=== PATIENT | male | born 1970 | race Caucasian/White ===

== ENCOUNTER 2020-01-25 12:05 | Emergency (ER) | payer BC, SELFPAY ==
[2020-01-25 12:12] VITALS: BP 149/98; PULSE 77; RESP 18; TEMP 36.7; O2SAT 98; BMI 27.8
[2020-01-25 12:18] VITALS: BP 140/80; PULSE 76; RESP 16; TEMP 37.2; O2SAT 100; BMI 27.8
--- NOTE | 2020-01-25 12:23 | HMH.EDUTC ---
[facility] [place] Disposition Clinical Impression: Abdominal cramping Disposition: Home, Self-Care Condition on Discharge: Good Instructions: How to Avoid Gas, Avoiding Gas-producing Foods, Intestinal Gas (Alternative Therapy) Additional Instructions: Make sure to follow up with your Family Doctor for further treatment and evaluation Return if needed Straight to ER if any life threatening symptoms Take medication as prescribed Prescriptions: Dicyclomine HCl [Bentyl 10mg capsule] 10 mg PO TID PRN #15 cap PRN Reason: Cramping Transmission Status: Received by [facility] Referrals: PCP,No [Primary Care Provider] - As needed Forms: Work/School Release Time of Disposition: 12:33 Medical Decision Making - Timmy Inquiry Pt receiving controlled substance: No Timmy was queried for this patient: No Vital Signs: 01/25/20 12:12 01/25/20 12:18 01/25/20 12:43 Temperature 98.1 F 98.9 F 98.9 F Temperature Source Oral Oral Pulse Rate 76 Pulse Rate [Radial] 77 76 Respiratory Rate 18 16 16 Blood Pressure 140/80 Blood Pressure [Right Arm] 149/98 H 140/80 Blood Pressure Mean [Right Arm] 115 100 Blood Pressure Source [Right Arm] Automatic Cuff Automatic Cuff Blood Pressure Position [Right Arm] Sitting Sitting 02 Sat by Pulse Oximetry 98 100 Oxygen Delivery Method Room Air Room Air Orders (Tests/Meds): ED MEDICATIONS Discontinued Medications Generic Name Dose Route Start Last Admin Trade Name Freq PRN Reason Stop Dose Admin Dicyclomine HCl 10 mg 01/25/20 12:30 01/25/20 12:32 Dicyclomine 20 Mg/2ml Vial IM 01/25/20 12:31 10 mg ONCE ONE Administration Medical Decision Narrative: Discussed and recommended KUB or acute abdomen Xray and patient declined After Bentyl patient states that he is feeling much better and no longer having the cramping like feeling and ready to go home again recommended xray and patient declined [facility] [place] HPI - General Stated complaint: gas abd pain Time Seen by Provider: 01/25/20 12:23 Mode of Arrival: Ambulatory Source of Information: Patient Limitations: No Limitations Description of Symptoms (Recalled from Triage Doc. by RN): PATIENT C/O GAS PAIN SINCE LAST NIGHT AFTER EATING SOME RAW BROCCOLI. HAS A HISTORY OF SIMILAR ISSUES HEENT Symptoms (Recalled from RN notes): No Resp Symptoms (Recalled from RN notes): No Skin Symptoms (Recalled from RN notes): No MS Symptoms (Recalled from RN notes): No Functional Status (Recalled from RN notes): WNL - History of Present Illness Provider Complaint: Patient states that sometimes after eating raw vegetables States that he eat some brocoli last night and has been having cramping like gas pain ever since States that he did this before after eating raw vegetables and come in and they give him a shot of something and it helped Denies pain in chest and reports feels like gas bubbles in his abdomen that are moving reports had large BM earlier today denies diarrhea - Related Data Home Medications Medication Instructions Recorded Confirmed omeprazole 20 mg capsule,delayed 20 mg PO ONCE 08/25/17 01/25/20 release Previous Rx's Medication Instructions Recorded Dicyclomine HCl [Bentyl 10mg 10 mg PO TID PRN #15 cap 01/25/20 capsule] Allergies Allergy/AdvReac Type Severity Reaction Status Date / Time No Known Allergies Allergy Verified 11/26/18 11:26 - Worker's Comp Is this a Worker's Comp case?: No [facility] History - Hepatitis A Screen Drug use history?: No High risk sexual behaviors?: No History of sexually transmitted infection?: No Currently employed?: No Childcare worker?: No Do you have indoor plumbing?: Yes Do you have electricity?: Yes Attestation statement:: This patient has been screened for Hepatitis A risk factors. I have reviewed the patient's past medical history: Yes Medical History: Reports:: Gastroesophageal Reflux Disease(GERD) Laterality Cases: Bilateral: Other A
[2020-01-25 12:43] VITALS: BP 140/80; PULSE 76; RESP 16; TEMP 37.2; O2SAT 100
== END 2020-01-25 12:45 | disposition home or self-care (01) ==
LOC: ER 12:13 → UTC 12:13
PROVIDERS: Emergency Provider Emergency Medicine
DX: R10.30 Lower abdominal pain, unspecified (principal); K21.9 Gastro-esophageal reflux disease without esophagitis
CPT/HCPCS: 96372; 99201

== ENCOUNTER 2020-04-17 21:02 | Emergency (ER) | payer BC, SELFPAY ==
[2020-04-17 21:03] VITALS: BP 128/90; PULSE 85; RESP 16; TEMP 37; O2SAT 99; BMI 27.8
--- NOTE | 2020-04-17 22:05 | HMH.EDNVD ---
ED Disposition Clinical Impression: Abdominal pain Qualifiers: Abdominal location: generalized Qualified Code(s): R10.84 - Generalized abdominal pain Disposition: Home, Self-Care Condition on Discharge: Good Instructions: DI for Acute Abdominal Pain Additional Instructions: see pcp for follow up Referrals: Rancho Prabhakar MD [Primary Care Provider] - - Critical Care Critical Care Time: No Attestation: On 04/17/20, the high probability of a clinically significant, sudden or life threatening deterioration of the following system(s) required my full and direct attention, intervention and personal management. The time I documented below is in addition to time spent performing reported procedures but includes the following listed in this critical care notation. Medical Decision Making - Medical Records Medical records reviewed: Yes: I reviewed the patient's medical records. - Timmy Inquiry Pt receiving controlled substance: No Vital Signs: 04/17/20 21:03 Temperature 98.6 F Temperature Source Oral Pulse Rate [Left Radial] 85 Respiratory Rate 16 Blood Pressure [Right Arm] 128/90 Blood Pressure Mean [Right Arm] 102 Blood Pressure Source [Right Arm] Automatic Cuff Blood Pressure Position [Right Arm] Sitting 02 Sat by Pulse Oximetry 99 Oxygen Delivery Method Room Air - Lab Data Lab results reviewed: Yes: I reviewed the patient's lab results. Orders (Tests/Meds): ED MEDICATIONS Discontinued Medications Generic Name Dose Route Start Last Admin Trade Name Nany PRN Reason Stop Dose Admin Dicyclomine HCl 10 mg 04/17/20 21:20 04/17/20 21:26 Dicyclomine 20 Mg/2ml Vial IM 04/17/20 21:21 10 mg ONCE ONE Administration Diphenhydramine HCl 25 mg 04/17/20 21:18 04/17/20 21:23 Diphenhydramine 50mg/Ml Vial IM 04/17/20 21:19 Not Given ONCE ONE Nausea/Vomiting/Diarrhea HPI - General Chief complaint: Abdominal Pain Stated complaint: stomach cramps Time Seen by Provider: 04/17/20 21:45 Mode of Arrival: Ambulatory Source of Information: Patient, Medical Record Limitations: No Limitations Description of Symptoms (Recalled from ER Triage Doc. by RN): pt stated he was eating raw carrots tonight when his stomach began to cramp and bloat. pt stated eating raw vegetables always has this effect on his stomach. pt denies any n/v/d or localized abd. pain and stated he didnt want any blood work at this time but just wanted an IM bentyl injection - History of Present Illness HPI Narrative: bloated abd after eating raw vegs with abd MD complaint: nausea, abdominal pain Onset (ago): hour(s) Associated Abdominal Pain: Yes Severity: moderate Associated symptoms: denies other symptoms - Related Data Home Medications Medication Instructions Recorded Confirmed omeprazole 20 mg capsule,delayed 20 mg PO ONCE 08/25/17 01/25/20 release Previous Rx's Medication Instructions Recorded Dicyclomine HCl [Bentyl 10mg 10 mg PO TID PRN #15 cap 01/25/20 capsule] Allergies Allergy/AdvReac Type Severity Reaction Status Date / Time No Known Allergies Allergy Verified 11/26/18 11:26 [facility] History - Hepatitis A Screen Drug use history?: No High risk sexual behaviors?: No History of sexually transmitted infection?: No Currently employed?: No Childcare worker?: No Do you have indoor plumbing?: Yes Do you have electricity?: Yes Attestation statement:: This patient has been screened for Hepatitis A risk factors. I have reviewed the patient's past medical history: Yes Medical History: Reports:: Gastroesophageal Reflux Disease(GERD) Laterality Cases: Bilateral: Other Amputation: No Fractures: No Comment: left thumb injury and colon surgery as an - Social History Smoking Status: Never smoker Alcohol Intake: never Substance Use Type: denies use Occupational Status: other Housing: house Household Members: family Family Hx:: Cancer ROS Obtained: Yes All sy
[2020-04-17 22:12] VITALS: BP 135/93; PULSE 81; RESP 16; TEMP 36.9; O2SAT 100
== END 2020-04-17 22:14 | disposition home or self-care (01) ==
PROVIDERS: Emergency Provider Emergency Medicine; PCP Emergency Medicine
DX: R10.84 Generalized abdominal pain (principal); K21.9 Gastro-esophageal reflux disease without esophagitis
CPT/HCPCS: 96372; 99281

== ENCOUNTER 2020-10-09 11:42 | Emergency (ER) | payer BC, SELFPAY ==
[2020-10-09 11:45] VITALS: BP 142/72; PULSE 72; RESP 18; TEMP 36.9; O2SAT 98; BMI 27.8
[2020-10-09 12:13] LABS: UTC Strep Screen (Rapid) Negative (Negative)
--- NOTE | 2020-10-09 12:36 | HMH.EDUTC ---
[facility] [place] Disposition Clinical Impression: URI (upper respiratory infection) Qualifiers: URI type: unspecified URI Qualified Code(s): J06.9 - Acute upper respiratory infection, unspecified Disposition: Home, Self-Care Condition on Discharge: Good Instructions: Sore Throat, Sinusitis, DI for Sinusitis, Azithromycin Additional Instructions: *Nasal saline and bulb syringe or nose isha to remove nasal drainage and help with nasal congestion. Hard to eat, drink, or sleep with nasal congestion so important to keep nose cleaned out. *Monitor Temp, Over the counter Motrin or Tylenol as directed/as needed Tylenol every 4 hours and Motrin every 6 hours (as long as your family doctor has told you that you can take it) for fever or pain. and straight to ER if unable to lower temp less than 101.0 after medication given *Warm salt water gargles may help to soothe the throat *Throat Lozenges *Warm fluids like tea with honey may help to soothe the throat *Sleep elevated *Humidifier/Vaporizer *Flonase 2 sprays in each nostril daily but be aware that it may take 2-3 days before you notice improvement Follow up IMMEDIATELY for new or worsening symptoms or no Noticeable improvement over the next 48-72 hours. 911 for difficulty breathing or swallowing Prescriptions: methylPREDNISolone [Medrol 4mg tab] 4 mg PO DIRECTED #21 tab Transmission Status: Pending to [facility] Azithromycin [Z-Akin 250mg Tab] 250 mg PO DIRECTED #6 tab Transmission Status: Pending to [facility] Referrals: Rancho Prabhakar MD [Primary Care Provider] - As needed Time of Disposition: 12:41 Medical Decision Making - Timmy Inquiry Pt receiving controlled substance: No Timmy was queried for this patient: No Vital Signs: 10/09/20 11:45 Temperature 98.5 F Temperature Source Oral Pulse Rate [Right Brachial] 72 Respiratory Rate 18 Blood Pressure [Right Arm] 142/72 H Blood Pressure Mean [Right Arm] 95 Blood Pressure Source [Right Arm] Automatic Cuff Blood Pressure Position [Right Arm] Sitting 02 Sat by Pulse Oximetry 98 Oxygen Delivery Method Room Air - Lab Data Lab results reviewed: Yes: I reviewed the patient's lab results. Lab Results 07/11/21 11:57: Strep Scn Rapid Clinic Negative Orders (Tests/Meds): ORDERS Category Date Time Status Strep Screen Confirmation Stat Micro 10/09/20 11:57 Received [facility] [place] HPI - General Stated complaint: sore throat Time Seen by Provider: 10/09/20 12:36 Mode of Arrival: Ambulatory Source of Information: Patient Limitations: No Limitations Description of Symptoms (Recalled from Triage Doc. by RN): PATIENT C/O SORE THROAT, WHITE PATCHES IN THROAT, AND SINUS DRAINAGE X 2 DAYS HEENT Symptoms (Recalled from RN notes): Yes Resp Symptoms (Recalled from RN notes): No Skin Symptoms (Recalled from RN notes): No MS Symptoms (Recalled from RN notes): No Functional Status (Recalled from RN notes): WNL - History of Present Illness Provider Complaint: Patient states that he has been having some sinus pressure and drainage in the back of his throat and having sore throat States that today he noticed he had some white patchy like areas on his right tonsil and was worried that he may have strep throat - Related Data Home Medications Medication Instructions Recorded Confirmed omeprazole 20 mg capsule,delayed 20 mg PO DAILYP PRN 08/25/17 10/09/20 release Previous Rx's Medication Instructions Recorded Azithromycin [Z-Akin 250mg Tab] 250 mg PO DIRECTED #6 tab 10/09/20 methylPREDNISolone [Medrol 4mg 4 mg PO DIRECTED #21 tab 10/09/20 tab] Allergies Allergy/AdvReac Type Severity Reaction Status Date / Time No Known Allergies Allergy Verified 11/26/18 11:26 - Worker's Comp Is this a Worker's Comp case?: No [facility] History - Hepatitis A Screen Drug use history?: No High risk sexual behaviors?: No History of sexually transmitted infection?: N
[2020-10-09 12:38] VITALS: BP 142/72; PULSE 72; RESP 18; TEMP 36.9; O2SAT 98
== END 2020-10-09 12:40 | disposition home or self-care (01) ==
PROVIDERS: Emergency Provider Nurse Practitioner; PCP Emergency Medicine
DX: J06.9 Acute upper respiratory infection, unspecified (principal); K21.9 Gastro-esophageal reflux disease without esophagitis
CPT/HCPCS: 87880; 99202; G0463

== ENCOUNTER 2021-04-16 09:08 | Emergency (ER) | payer BC, SELFPAY ==
[2021-04-16 09:41] VITALS: BP 149/79; PULSE 89; RESP 19; TEMP 37.3; O2SAT 96; BMI 27.8
--- NOTE | 2021-04-16 09:41 | HMH.EDUTC ---
[facility] [place] Clinical Impression: Influenza A Sinusitis Qualifiers: Sinusitis location: unspecified location Chronicity: acute Recurrence: non-recurrent Qualified Code(s): J01.90 - Acute sinusitis, unspecified Disposition: Home, Self-Care Condition on Discharge: Good Instructions: DI for Viral Syndrome Additional Instructions: Drink plenty of fluids. Take tylenol or ibuprofen for pain or fever. Take the medications as directed. Follow up with your regular doctor. GO TO THE ER FOR ANY WORSENING SYMPTOMS Quarantine until you know the results of your covid-19 test. If it is positive, the health department should call you and give you further instructions about your length of Quarantine and other things. Notify your school or workplace of your results and follow their instructions regarding return to work/school. Prescriptions: Promethazine/Dextromethorphan [Promethazine-Dm Syrup] 5 ml PO Q6HP PRN #240 ml PRN Reason: Cough [facility] methylPREDNISolone [Medrol] 4 mg PO DIRECTED 6 Days #21 packet Transmission Status: [facility] Cefdinir [Omnicef 300mg Capsule] 300 mg PO BID #20 cap Transmission Status: Received by [facility] Oseltamivir Phosphate [Tamiflu 75mg Capsule] 75 mg PO BID #10 cap Transmission Status: [facility] to [facility] Referrals: Rancho Prabhakar MD [Primary Care Provider] - Time of Disposition: 10:30 Medical Decision Making - Medical Records Medical records reviewed: No: I reviewed the patient's medical records. - Timmy Inquiry Pt receiving controlled substance: No Vital Signs: 04/16/21 09:41 Temperature 99.1 F Temperature Source Oral Pulse Rate [Left] 89 Respiratory Rate 19 Blood Pressure [Right Arm] 149/79 H Blood Pressure Mean [Right Arm] 102 02 Sat by Pulse Oximetry 96 - Lab Data Lab results reviewed: Yes: I reviewed the patient's lab results. Lab Results 04/16/21 09:44: Influenza Type A Ag Positive A, Influenza Type B Ag Negative Orders (Tests/Meds): ORDERS Category Date Time Status Covid-19 Nasal PCR ([facility]) Routine Lab 04/16/21 09:43 Received [facility] [place]PI - General Stated complaint: covid test/symptoms Time Seen by Provider: 04/16/21 09:41 - History of Present Illness Provider Complaint: He states that since yesterday he has had sinus congestion, chills, a dry cough, and body aches. He was treated for a sinus infection last week with azithromycin and it got better at that time. - Related Data Home Medications Medication Instructions Recorded Confirmed omeprazole 20 mg capsule,delayed 20 mg PO DAILYP PRN 08/25/17 04/15/21 release Previous Rx's Medication Instructions Recorded cetirizine 10 mg tablet 10 mg PO DAILY #30 tab 04/15/21 Cefdinir [Omnicef 300mg Capsule] 300 mg PO BID #20 cap 04/16/21 Oseltamivir Phosphate [Tamiflu 75 mg PO BID #10 cap 04/16/21 75mg Capsule] Promethazine/Dextromethorphan 5 ml PO Q6HP PRN #240 ml 04/16/21 [Promethazine-Dm Syrup] methylPREDNISolone [Medrol] 4 mg PO DIRECTED 6 Days #21 04/16/21 packet Allergies Allergy/AdvReac Type Severity Reaction Status Date / Time No Known Allergies Allergy Verified 04/15/21 17:29 [facility] History - Hepatitis A Screen Attestation statement:: This patient has been screened for Hepatitis A risk factors. I have reviewed the patient's past medical history: Yes Medical History: Reports:: Gastroesophageal Reflux Disease(GERD) Laterality Cases: Bilateral: Other Amputation: No Fractures: No Comment: left thumb injury and colon surgery as an infant - Social History Smoking Status: Never smoker Alcohol Intake: never Substance Use Type: denies use Occupational Status: other Housing: house Household Members: family Family Hx:: Cancer ROS Obtained: Yes All systems reviewed & no additional complaints - Constitutional Constitutional:
[2021-04-16 10:26] LABS: UTC Influenza B Antigen Negative (Negative)
[2021-04-16 10:38] LABS: UTC Influenza A Antigen Positive (Negative)
[2021-04-16 10:49] VITALS: BP 149/79; PULSE 89; RESP 19; TEMP 37.3
== END 2021-04-16 10:51 | disposition home or self-care (01) ==
PROVIDERS: Emergency Provider Nurse Practitioner Family; PCP Emergency Medicine
DX: J10.1 Influenza due to other identified influenza virus with other respiratory manifestations (principal); U07.1 COVID-19; J01.90 Acute sinusitis, unspecified
CPT/HCPCS: 87804; 99202; C9803; G0463; U0003; U0005

== ENCOUNTER 2021-10-06 18:17 | Emergency (ER) | payer BC, SELFPAY ==
[2021-10-06 18:40] VITALS: BP 144/83; PULSE 72; RESP 19; TEMP 37.2; O2SAT 97; BMI 26.4
--- NOTE | 2021-10-06 19:01 | HMH.EDUTC ---
[facility] [place] Clinical Impression: Allergic rhinitis Qualifiers: Allergic rhinitis trigger: unspecified Allergic rhinitis seasonality: unspecified Qualified Code(s): J30.9 - Allergic rhinitis, unspecified Disposition: Home, Self-Care Condition on Discharge: Good Instructions: Allergic Rhinitis, DI for Allergic Rhinitis, Methylprednisolone Additional Instructions: *Monitor Temp, Over the counter Motrin or Tylenol as directed/as needed Tylenol every 4 hours and Motrin every 6 hours (as long as your family doctor has told you that you can take it) for fever or pain. and straight to ER if unable to lower temp less than 101.0 after medication given Start oral steriods tomorrow Use nasal spray Follow up IMMEDIATELY for new or worsening symptoms or no Noticeable improvement over the next 48-72 hours. 911 for difficulty breathing or swallowing Prescriptions: Fluticasone Propionate [Flonase 50mcg nasal spray 16gm] 1 spr NS DAILY #1 each Transmission Status: Pending to [facility] methylPREDNISolone [Medrol 4mg tab] 4 mg PO DIRECTED #21 tab Transmission Status: Pending to [facility] Referrals: Rancho Prabhakar MD [Primary Care Provider] - As needed Time of Disposition: 19:20 Medical Decision Making - Timmy Inquiry Pt receiving controlled substance: No Timmy was queried for this patient: No Vital Signs: 10/06/21 18:40 10/06/21 19:08 Temperature 98.9 F 98.9 F Temperature Source Temporal Artery Scan Pulse Rate 72 Pulse Rate [Right Brachial] 72 Respiratory Rate 19 19 Blood Pressure 144/83 H Blood Pressure [Right Arm] 144/83 H Blood Pressure Mean [Right Arm] 103 Blood Pressure Source [Right Arm] Automatic Cuff Blood Pressure Position [Right Arm] Sitting 02 Sat by Pulse Oximetry 97 Oxygen Delivery Method Room Air Orders (Tests/Meds): ED MEDICATIONS Discontinued Medications Generic Name Dose Route Start Last Admin Trade Name Freq PRN Reason Stop Dose Admin Methylprednisolone Sodium Succinate 125 mg 10/06/21 19:01 10/06/21 19:05 Methylprednisolone Sod Succ 125mg Vial IM 10/06/21 19:02 125 mg ONCE ONE Administration [facility] [place] - General Stated complaint: runny nose and congestion Time Seen by Provider: 10/06/21 19:01 Mode of Arrival: Ambulatory Source of Information: Patient Limitations: No Limitations Description of Symptoms (Recalled from Triage Doc. by RN): PATIENT C/O CONGESTION AND ALLERGIES X 3 MONTHS HEENT Symptoms (Recalled from RN notes): Yes Resp Symptoms (Recalled from RN notes): No Skin Symptoms (Recalled from RN notes): No MS Symptoms (Recalled from RN notes): No Functional Status (Recalled from RN notes): WNL - History of Present Illness Provider Complaint: Patient states that he has really bad allergies on and off for about 3 mths States that recently he eat a bar and there was alot of people in there smoking and it caused an allergy flare States that he has tried to get it cleared up with his allergy medication but it hasnt helped so he came in to get a shot of steriods to see if that would help - Related Data Previous Rx's Medication Instructions Recorded Fluticasone Propionate [Flonase 1 spr NS DAILY #1 each 10/06/21 50mcg nasal spray 16gm] methylPREDNISolone [Medrol 4mg 4 mg PO DIRECTED #21 tab 10/06/21 tab] Allergies Allergy/AdvReac Type Severity Reaction Status Date / Time No Known Allergies Allergy Verified 04/15/21 17:29 - Worker's Comp Is this a Worker's Comp case?: No [facility] History - Hepatitis A Screen Attestation statement:: This patient has been screened for Hepatitis A risk factors. I have reviewed the patient's past medical history: Yes Medical History: Reports:: Gastroesophageal Reflux Disease(GERD) Laterality Cases: Bilateral: Other Amputation: No Fractures: No Comment: left thumb injury and colon surgery as an - Social History Smoking Status: Never smoker Alcohol Int
[2021-10-06 19:08] VITALS: BP 144/83; PULSE 72; RESP 19; TEMP 37.2; O2SAT 97
== END 2021-10-06 19:24 | disposition home or self-care (01) ==
PROVIDERS: Emergency Provider Nurse Practitioner; PCP Emergency Medicine
DX: J30.9 Allergic rhinitis, unspecified (principal); K21.9 Gastro-esophageal reflux disease without esophagitis; Z79.51 Long term (current) use of inhaled steroids; Z79.52 Long term (current) use of systemic steroids
CPT/HCPCS: 96372; 99213; G0463

== ENCOUNTER 2021-12-02 08:02 | Emergency (ER) | payer BC, SELFPAY ==
[2021-12-02 08:05] VITALS: BP 132/81; PULSE 61; RESP 20; TEMP 36.7; O2SAT 97; BMI 26.7
--- NOTE | 2021-12-02 08:35 | EXP.UTC ---
Discharge Plan Disposition Patient Disposition: Home, Self-Care Condition: Good Prescriptions Prescriptions: New amoxicillin 875 mg tablet 875 mg PO BID Qty: 20 0RF methylprednisolone [Medrol (Akin)] 4 mg tablets,dose pack 4 mg PO DIRECTED 6 Days Qty: 6 0RF Rx Instructions: 4 mg orally ;Medrol dose taper akin No Action omeprazole 20 mg Capsule,Delayed Release(Dr/Ec) 20 mg PO DAILY Referrals Follow up/Referrals: Rancho Prabhakar MD [Primary Care Provider] - See instructions Activity Restrictions/Add. Instructions Additional Instructions/Restrictions: Take medication as prescribed. Use Flonase daily. Increase fluids. Take Tylenol/Motrin as needed for pain/fever. Follow up with PCP if no improvement or symptoms worsen. Clinical Impressions Clinical Impression: Sinusitis, Otitis media Instructions Patient Instructions: Sinusitis, Middle Ear Infection, DI for Sinusitis Discharge ED Provider: Katheryn Boyd [facility] [place] [place] HPI General Stated complaint: Ear pain Mode of Arrival: Ambulatory Source of Information: Patient Limitations: No Limitations Time Seen by Provider: 12/02/21 08:20 Description of Symptoms (Recalled from Triage Doc. by RN): PATIENT C/O LEFT EAR PAIN AND SINUS CONGESTION SINCE YESTERDAY HEENT Symptoms (Recalled from RN notes): Yes Resp Symptoms (Recalled from RN notes): No Skin Symptoms (Recalled from RN notes): No MS Symptoms (Recalled from RN notes): No Functional Status (Recalled from RN notes): WNL History of Present Illness Provider Complaint: Pt complains of Sinus issues for the last 3 weeks and now has left ear pain. Pt states that he has tried taking fexafenadine but this has not helped his symptoms. 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 Related Data Home Medications Medication Instructions Recorded Confirmed omeprazole 20 mg capsule,delayed 20 mg PO DAILY GERD 12/02/21 12/02/21 release Previous Rx's Medication Instructions Recorded amoxicillin 875 mg tablet 875 mg PO BID #20 tabs 12/02/21 methylprednisolone 4 mg tablets in 4 mg PO DIRECTED 6 days #6 tabs 12/02/21 a dose pack (Medrol (Akin)) Allergies Allergy/AdvReac Type Severity Reaction Status Date / Time No Known Allergies Allergy Verified 04/15/21 17:29 Worker's Comp Is this a Worker's Comp case?: No PFSH PFSH Medical History (Updated 12/02/21 @ 08:44 by Katheryn Boyd APRN) History of gastroesophageal reflux (GERD) Social History (Updated 12/02/21 @ 08:14 by Antonia Santiago RN) Smoking Status: Never smoker alcohol intake: never substance use type: denies use current occupational status: other Travel in the last 8 weeks: None household members: family housing: house ROS Obtained: Yes All systems reviewed & no additional complaints except as documented and Yes Systems reviewed as appropriate & no additional complaints except as documented ENT Ears, Nose, Mouth, and Throat: Reports otalgia, Reports sinus pain and Reports sinus pressure Cardiovascular Cardiovascular: Reports system reviewed and no additional complaints, except as documented Respiratory Respiratory: Reports system reviewed and no additional complaints, except as documented Gastrointestinal Gastrointestingal: Reports system reviewed and no additional complaints, except as documented Physical Exam General General appearance: alert and in no apparent distress Expanded ENT Exam TM/Canal exam: Left TM: erythema and Bilateral TM: bulging (Fluid behind TMs) Nose exam: Present sinus tenderness Nasal speculum exam: Bilateral: purulent discharge Respiratory Respiratory exam: Present normal lung sounds bilaterally Cardiovascular Cardiovascular exam: Present regular rate and normal rhythm Neurological Exam Neurological exam: Present alert, oriented X3 and normal gait Medical Decision Making Timmy Inquiry Pt receiving controlled substance: No [place]
[2021-12-02 08:38] VITALS: BP 132/81; PULSE 61; RESP 20; TEMP 36.7; O2SAT 97
== END 2021-12-02 08:47 | disposition home or self-care (01) ==
PROVIDERS: Emergency Provider Nurse Practitioner Family; PCP Emergency Medicine
DX: J01.90 Acute sinusitis, unspecified (principal); H66.93 Otitis media, unspecified, bilateral
CPT/HCPCS: 99282

== ENCOUNTER 2021-12-17 08:19 | Emergency (ER) | payer BC, SELFPAY ==
--- NOTE | 2021-12-17 08:26 | EXP.UTC ---
Discharge Plan Disposition Patient Disposition: Home, Self-Care Condition: Good Prescriptions Prescriptions: New sulfamethoxazole-trimethoprim [Bactrim DS] 800-160 mg tablet 1 tab PO BID Qty: 20 0RF No Action omeprazole 20 mg Capsule,Delayed Release(Dr/Ec) 20 mg PO DAILY Referrals Follow up/Referrals: Rancho Prabhakar MD [Primary Care Provider] - See instructions Clinical Impressions Clinical Impression: Insect bite Instructions Patient Instructions: DI for Skin Abscess Discharge ED Provider: Brayden Whyte [facility] HPI General Chief complaint: Skin/Abscess/Foreign Body Stated complaint: Possible spider bite on LT side abdomin Mode of Arrival: Ambulatory Source of Information: Patient Limitations: No Limitations Time Seen by Provider: 12/17/21 08:47 Description of Symptoms (Recalled from Triage Doc. by RN): spider bite to left back HEENT Symptoms (Recalled from RN notes): No Resp Symptoms (Recalled from RN notes): No Skin Symptoms (Recalled from RN notes): No GI/ Symptoms (Recalled from RN notes): No MS Symptoms (Recalled from RN notes): No Card Symptoms (Recalled from RN notes): No Other (Recalled from RN notes): No History of Present Illness Provider Complaint: 51 yr old male presents for a insect bite to left back area since . 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 pt states area has improved slightly. Onset (ago): day(s) Location: back Radiation: non-radiation Treatments prior to arrival: none Related Data Home Medications Medication Instructions Recorded Confirmed omeprazole 20 mg capsule,delayed 20 mg PO DAILY GERD 12/02/21 12/17/21 release Previous Rx's Medication Instructions Recorded sulfamethoxazole 800 1 tab PO BID #20 tabs 12/17/21 mg-trimethoprim 160 mg tablet (Bactrim DS) Allergies Allergy/AdvReac Type Severity Reaction Status Date / Time No Known Allergies Allergy Verified 04/15/21 17:[address] [facility] Medical History , [employer]) History of gastroesophageal reflux (GERD) Social History , [employer]) Smoking Status: Never smoker alcohol intake: never substance use type: denies use current occupational status: other Travel in the last 8 weeks: None household members: family housing: house ROS Obtained: Yes All systems reviewed & no additional complaints except as documented Constitutional Constitutional: Reports system reviewed and no additional complaints, except as documented Eyes Eyes: Reports system reviewed and no additional complaints, except as documented ENT Ears, Nose, Mouth, and Throat: Reports system reviewed and no additional complaints, except as documented Cardiovascular Cardiovascular: Reports system reviewed and no additional complaints, except as documented Respiratory Respiratory: Reports system reviewed and no additional complaints, except as documented Gastrointestinal Gastrointestingal: Reports system reviewed and no additional complaints, except as documented Genitourinary Male Genitourinary: Reports system reviewed and no additional complaints, except as documented Musculoskeletal Musculoskeletal: Reports system reviewed and no additional complaints, except as documented Integumentary/Breasts Skin/Breast: Reports system reviewed and no additional complaints, except as documented and Reports other (insect bite) Neurologic Neurologic: Reports system reviewed and no additional complaints, except as documented Endocrine Endocrine: Reports system reviewed and no additional complaints, except as documented Hematologic/Lymphatic Henatologic/Lymphatic: Reports system reviewed and no additional complaints, except as documented Allergic/Immunologic Allergic/Immunologic: Reports system reviewed and no additional complaints, except as
[2021-12-17 08:28] VITALS: BP 141/93; PULSE 69; RESP 19; TEMP 36.7; O2SAT 98; BMI 27.4
[2021-12-17 08:59] VITALS: BP 141/93; PULSE 69; RESP 19; TEMP 36.7
== END 2021-12-17 09:02 | disposition home or self-care (01) ==
PROVIDERS: Emergency Provider Nurse Practitioner Family; PCP Emergency Medicine
DX: S30.861A Insect bite (nonvenomous) of abdominal wall, initial encounter (principal)
CPT/HCPCS: 99212; G0463

== ENCOUNTER 2022-01-22 10:44 | Emergency (ER) | payer BC, SELFPAY ==
[2022-01-22 10:44] VITALS: BP 131/65; PULSE 85; RESP 19; TEMP 37.1; O2SAT 98; BMI 27.3
--- NOTE | 2022-01-22 11:36 | EXP.UTC ---
Discharge Plan Disposition Patient Disposition: Home, Self-Care Condition: Good Prescriptions Prescriptions: New [id number]-[id number]-NC [Bromfed DM] 2-30-10 mg/5 mL Syrup 10 ml PO Q4H PRN (Reason: Cough) Qty: 240 0RF azithromycin [Zithromax Z-Akin] 250 mg tablet See Rx Instructions .ROUTE .COMPLEX 5 Days Qty: 6 0RF Rx Instructions: For 250 mg dose pack: take 500 mg today (day 1), then 250 mg for 4 days (days 2-5) methylprednisolone [Medrol (Akin)] 4 mg tablets,dose pack See Rx Instructions .Route .COMPLEX 6 Days Qty: 21 0RF Rx Instructions: taper pack; No Action sulfamethoxazole-trimethoprim [Bactrim DS] 800-160 mg tablet 1 tab PO BID Qty: 20 0RF sulfamethoxazole-trimethoprim [Bactrim DS] 800-160 mg tablet 1 tab PO BID Qty: 20 0RF omeprazole 20 mg Capsule,Delayed Release(Dr/Ec) 20 mg PO DAILY Referrals Follow up/Referrals: Rancho Prabhakar MD [Primary Care Provider] - See instructions Activity Restrictions/Add. Instructions Additional Instructions/Restrictions: *Monitor Temp, Over the counter Motrin or Tylenol as directed/as needed Tylenol every 4 hours and Motrin every 6 hours (as long as your family doctor has told you that you can take it) for fever or pain. and straight to ER if unable to lower temp less than 101.0 after medication given *Warm salt water gargles may help to soothe the throat *Throat Lozenges? *Warm fluids like tea with honey may help to soothe the throat? *Sleep elevated *Humidifier/Vaporizer *Bromfed may cause drowsiness. Know how it effects you (your child) before driving, caring for small child, or sending your child to school. Not other antihistamines/allergy medications while taking bromfed Your throat swab was sent for culture. Those results are typically sent to your primary care. Be sure to follow up in 2-3 days with your family doctor/primary care physician if no improvement so they can review those result and treat if necessary. If you don?t have a primary care doctor, I recommend you get one but in the mean time, you will have to return to a walk in clinic Follow up IMMEDIATELY for new or worsening symptoms or no Noticeable improvement over the next 48-72 hours. 911 for difficulty breathing or swallowing You were tested for today for COVID19 your test result should be back in the next 24-48 hours, you may check your results on the [facility] My Health Portal Clinical Impressions Clinical Impression: Sinusitis Stand Alone Forms Stand Alone Forms: Work/School Release Instructions Patient Instructions: DI for Sinusitis, Sinusitis, Coronavirus Disease 2019 Discharge ED Provider: Sharmaine Freed [facility] HPI General Stated complaint: Covid+ 01/11, retest Mode of Arrival: Ambulatory Source of Information: Patient Limitations: No Limitations Time Seen by Provider: 01/22/22 11:36 Description of Symptoms (Recalled from Triage Doc. by RN): wants a positive covid test congestion, runny nose, fatigue, body aches HEENT Symptoms (Recalled from RN notes): Yes Resp Symptoms (Recalled from RN notes): No Skin Symptoms (Recalled from RN notes): No MS Symptoms (Recalled from RN notes): No Functional Status (Recalled from RN notes): n/a History of Present Illness Provider Complaint: Patient states that he has been having sinus pain and pressure and drainage along with cough, fatigue and body aches States that at times he is coughing up some mucous States that he took a home COVID test last night and thinks he may have seen a faint line but not sure so he came in today to get checked Related Data Home Medications Medication Instructions Recorded Confirmed omeprazole 20 mg capsule,delayed 20 mg PO DAILY GERD 12/02/21 12/17/21 release Previous Rx's Medication Instructions Recorded sulfamethoxazole 800 1 tab PO BID #20 tabs 12/17/21 mg-trimethoprim 160 mg tablet (Bactrim DS) sulfamethoxazole 800 1 tab PO BID #20 tab
[2022-01-22 11:56] VITALS: BP 131/65; PULSE 85; RESP 19; TEMP 37.1; O2SAT 98
== END 2022-01-22 11:57 | disposition home or self-care (01) ==
PROVIDERS: Emergency Provider Nurse Practitioner; PCP Emergency Medicine
DX: J32.9 Chronic sinusitis, unspecified (principal); Z86.16 Personal history of COVID-19
CPT/HCPCS: 99212; C9803; G0463; U0003; U0005

== ENCOUNTER → 2022-11-05 10:51 | Outpatient (CLI) | payer BC, SELFPAY ==
--- NOTE | 2022-11-05 10:52 | US_ITS ---
FINAL REPORT CLINICAL HISTORY: abdominal pain FINDINGS: Sonographic images of the right upper quadrant were obtained. The pancreas is partially obscured.The liver has an unremarkable appearance.The gallbladder appears normal without evidence of gallstones.There is no evidence of biliary ductal dilatation.The common duct measures 4mm. Limited images of the right kidney are unremarkable. IMPRESSION: Unremarkable right upper quadrant ultrasound. Reviewed, Interpreted and Dictated by Paul Payne III, MD Transcribed by Queenie Buenrostro Authenticated and [facility]
== END ==
PROVIDERS: PCP Emergency Medicine; Visit Provider Emergency Medicine
DX: R10.9 Unspecified abdominal pain (principal)
CPT/HCPCS: 76705

== ENCOUNTER 2022-11-05 16:39 | Emergency (ER) | payer BC, SELFPAY ==
[2022-11-05 16:40] VITALS: BP 140/72; PULSE 75; RESP 16; TEMP 36.7; O2SAT 98; BMI 19.0
[2022-11-05 17:05] LABS: UTC Strep Screen (Rapid) Negative (Negative)
--- NOTE | 2022-11-05 17:08 | EXP.UTC ---
Discharge Plan Disposition Patient Disposition: Home, Self-Care Condition: Good Prescriptions Prescriptions: New azithromycin [Zithromax Z-Akin] 250 mg tablet See Rx Instructions .ROUTE .COMPLEX 5 Days Qty: 6 0RF Rx Instructions: For 250 mg dose pack: take 500 mg today (day 1), then 250 mg for 4 days (days 2-5) methylprednisolone [Medrol (Akin)] 4 mg tablets,dose pack See Rx Instructions .Route .COMPLEX 6 Days Qty: 21 0RF Rx Instructions: taper pack; No Action pantoprazole [Protonix] 40 mg tablet,delayed release (DR/EC) 40 mg PO BID Qty: 180 3RF Referrals Follow up/Referrals: Rancho Prabhakar MD [Primary Care Provider] - See instructions Activity Restrictions/Add. Instructions Additional Instructions/Restrictions: *Monitor Temp, Over the counter Motrin or Tylenol as directed/as needed Tylenol every 4 hours and Motrin every 6 hours (as long as your family doctor has told you that you can take it) for fever or pain. and straight to ER if unable to lower temp less than 101.0 after medication given *Warm salt water gargles may help to soothe the throat *Throat Lozenges? *Warm fluids like tea with honey may help to soothe the throat? *Sleep elevated *Humidifier/Vaporizer Your throat swab was sent for culture. Those results are typically sent to your primary care. Be sure to follow up in 2-3 days with your family doctor/primary care physician if no improvement so they can review those result and treat if necessary. If you don?t have a primary care doctor, I recommend you get one but in the mean time, you will have to return to a walk in clinic Follow up IMMEDIATELY for new or worsening symptoms or no Noticeable improvement over the next 48-72 hours. 911 for difficulty breathing or swallowing Clinical Impressions Clinical Impression: Pharyngitis Qualifiers: Pharyngitis/tonsillitis etiology: unspecified etiology Qualified Code(s): J02.9 - Acute pharyngitis, unspecified Instructions Patient Instructions: Sore Throat, Sinusitis, DI for Sinusitis Discharge ED Provider: Sharmaine Freed [facility] General Stated complaint: sore throat Mode of Arrival: Ambulatory Source of Information: Patient Limitations: No Limitations Time Seen by Provider: 11/05/22 17:09 Description of Symptoms (Recalled from Triage Doc. by RN): Patient reports possible sinus infection and sore throat. HEENT Symptoms (Recalled from RN notes): Yes Resp Symptoms (Recalled from RN notes): No Skin Symptoms (Recalled from RN notes): No MS Symptoms (Recalled from RN notes): No Functional Status (Recalled from RN notes): wnl History of Present Illness Provider Complaint: Patient states that he was not sure if he had a sinus infection or strep throat States that he has been having sinus pressure and drainage and sore throat States that he noticed some areas on the back of his throat that looked like blisters States today he wasnt feeling any better so he came in to get checked Related Data Previous Rx's Medication Instructions Recorded pantoprazole 40 mg tablet,delayed 40 mg PO BID #180 tabs 08/02/22 release (Protonix) azithromycin 250 mg tablet See Rx Instructions PO .COMPLEX 5 11/05/22 (Zithromax Z-Akin) days #6 tabs methylprednisolone 4 mg tablets in See Rx Instructions .Route 11/05/22 a dose pack (Medrol (Akin)) .COMPLEX 6 days #21 tabs Allergies Allergy/AdvReac Type Severity Reaction Status Date / Time No Known Allergies Allergy Verified 10/29/22 14:32 Worker's Comp Is this a Worker's Comp case?: No [facility] Disclaimer: The information contained in this section may have been updated after the patient was seen, as this information can be updated by other users. Medical History (Updated 11/05/22 @ 17:13 by Sharmaine Freed APRN) Abdominal cramping Abdominal pain Allergic rhinitis Amputation of thumb Anxiety History of gastroesophageal reflux (GERD) Influenza A In
[2022-11-05 17:14] VITALS: BP 140/72; PULSE 75; RESP 16; TEMP 36.7; O2SAT 98
== END 2022-11-05 17:18 | disposition home or self-care (01) ==
PROVIDERS: Emergency Provider Nurse Practitioner; PCP Emergency Medicine
DX: J02.9 Acute pharyngitis, unspecified (principal); J30.9 Allergic rhinitis, unspecified; K21.9 Gastro-esophageal reflux disease without esophagitis; F41.9 Anxiety disorder, unspecified
CPT/HCPCS: 87880; 99212; 99214; G0463

== ENCOUNTER 2022-11-12 18:14 | Emergency (ER) | payer BC, SELFPAY ==
[2022-11-12 18:20] VITALS: BP 150/88; PULSE 66; RESP 22; TEMP 36.8; O2SAT 97; BMI 25.2
--- NOTE | 2022-11-12 18:40 | EXP.UTC ---
Discharge Plan Disposition Patient Disposition: Home, Self-Care Condition: Good Prescriptions Prescriptions: New nystatin 100,000 unit/mL suspension 6 ml buccal QID 10 Days Qty: 240 0RF Rx Instructions: administer 1/2 of dose in each side of the mouth swish and retain in mouth as long as possible and spit Referrals Follow up/Referrals: Rancho Prabhakar MD [Primary Care Provider] - See instructions Activity Restrictions/Add. Instructions Additional Instructions/Restrictions: Use Nystatin as directed Follow up with your Family Doctor if no improvement or any worsening of symptoms Return if needed Straight to ER if any life threatening symptoms Clinical Impressions Clinical Impression: Candidiasis of mouth Instructions Patient Instructions: Thrush-Adult, DI for Thrush, Nystatin Discharge ED Provider: Sharmaine Freed [facility] General Stated complaint: tongue has coating Mode of Arrival: Ambulatory Source of Information: Patient Limitations: No Limitations Time Seen by Provider: 11/12/22 18:40 Description of Symptoms (Recalled from Triage Doc. by RN): PATIENT C/O IRRITATION TO TONGUE, POSSIBLY THRUSH HEENT Symptoms (Recalled from RN notes): Yes Resp Symptoms (Recalled from RN notes): No Skin Symptoms (Recalled from RN notes): No MS Symptoms (Recalled from RN notes): No Functional Status (Recalled from RN notes): WNL History of Present Illness Provider Complaint: Patient states that he was recently started on antibiotics and sometimes when he takes it he will get thrush States that he is starting to have that sandpaper like feeling on his tongue and noticed he was starting to have a white film on his tongue and wanted to get it checked before it got really bad Related Data Previous Rx's Medication Instructions Recorded nystatin 100,000 unit/mL oral 6 ml buccal QID 10 days #240 mL 11/12/22 suspension Allergies Allergy/AdvReac Type Severity Reaction Status Date / Time No Known Allergies Allergy Verified 10/29/22 14:32 Worker's Comp Is this a Worker's Comp case?: No [facility] Disclaimer: The information contained in this section may have been updated after the patient was seen, as this information can be updated by other users. Medical History (Updated 11/12/22 @ 18:54 by Sharmaine Freed APRN) Abdominal cramping Abdominal pain Allergic rhinitis Amputation of thumb Anxiety History of gastroesophageal reflux (GERD) Influenza A Insect bite Otitis media Sinusitis URI (upper respiratory infection) Surgical History (Updated 02/26/22 @ 12:37 by Leleee rAndt DO) History of esophagogastroduodenoscopy (EGD) History of hernia repair Family History (Updated 02/26/22 @ 11:58 by Jodie Maza MA) Mother Cancer Social History (Updated 02/26/22 @ 12:38 by Leelee Arndt DO) Smoking Status: Former smoker alcohol intake: never substance use type: denies use current occupational status: employed and other Travel in the last 8 weeks: None household members: family housing: house marital status: number of children: 2 ROS Obtained: Yes All systems reviewed & no additional complaints except as documented and Yes Systems reviewed as appropriate & no additional complaints except as documented Constitutional Constitutional: Reports system reviewed and no additional complaints, except as documented and Reports as per HPI ENT Ears, Nose, Mouth, and Throat: Reports system reviewed and no additional complaints, except as documented, Reports as per HPI and Reports other (white patchy like areas on tongue) Cardiovascular Cardiovascular: Reports system reviewed and no additional complaints, except as documented and Reports as per HPI Respiratory Respiratory: Reports system reviewed and no additional complaints, except as documented and Reports as per HPI Gastrointestinal Gastrointestingal: Reports system reviewed and no additional complaints, except as
[2022-11-12 18:50] VITALS: BP 150/88; PULSE 66; RESP 22; TEMP 36.8; O2SAT 97
== END 2022-11-12 18:55 | disposition home or self-care (01) ==
PROVIDERS: Emergency Provider Nurse Practitioner; PCP Emergency Medicine
DX: B37.0 Candidal stomatitis (principal); F41.9 Anxiety disorder, unspecified; K21.9 Gastro-esophageal reflux disease without esophagitis; Z87.891 Personal history of nicotine dependence
CPT/HCPCS: 99212; 99214; G0463

== ENCOUNTER 2023-02-20 10:08 | Day surgery (SDC) | payer BC, SELFPAY ==
[2023-02-20 10:24] VITALS: BP 146/67; PULSE 91; RESP 18; TEMP 36.7; O2SAT 98; BMI 25.0
--- NOTE | 2023-02-20 10:58 | P.PNANES_ITS ---
[facility] Disclaimer: The information contained in this section may have been updated after the patient was seen, as this information can be updated by other users. Medical History Abdominal cramping Abdominal pain Allergic rhinitis Amputation of thumb Anxiety History of gastroesophageal reflux (GERD) Influenza A Insect bite Otitis media Sinusitis URI (upper respiratory infection) Surgical History History of esophagogastroduodenoscopy (EGD) History of hernia repair L groin Family History Mother Cancer Ovarian Social History (Updated 02/20/23 @ 10:24 by Nikita Mendoza RN) Smoking Status: Former smoker alcohol intake: never substance use type: denies use current occupational status: employed and other Travel in the last 8 weeks: Inside the [place] household members: family housing: house marital status: number of children: 2 [facility] Anesthesia Checklist Patient Identification Patient Identification: Arm Band Structural Data Admitted From: Home Planned Operative Procedure/s: colonoscopy Consent for Planned Operative Procedure(s) Verified: Yes Verified Documents: Surgical Consent and History and Physical NPO Status Verified Time NPO: 00:00 Additional verifications Anesthesia Reactions: No Airway Assessment Mallampati Score:: Class II C-Spine Mobility Assessed: Yes Dentition: Good Dentition Neurological Assessment Level of Consciousness: Awake and Alert Anesthesia Plan Anesthesia Risk discussed: Yes Anesthesia Plan: Verified ASA Class: II Anesthesia Type: MAC
[2023-02-20 10:59] VITALS: O2SAT 99
[2023-02-20 11:25] VITALS: BP 101/71; PULSE 84; RESP 14; TEMP 36.2; O2SAT 93
--- NOTE | 2023-02-20 11:27 | HMH.SCOPE ---
Procedure: Date: 02/20/23 Patient Date of :: 1970 Procedure Performed:: Colonoscopy Indications:: The patient is a 52 year old who presents for surveillance colonoscopy for a history of colon polyps. There is family history of colon cancer in first degree relative (mother) Performing Provider:: Mateus Llanos MD Referring Provider:: Rancho Prabhakar MD Sedation:: See RN records Procedure:: After placing the patient in the left lateral decubitus position, the colonoscopy was gently inserted into the rectum and under direct visualization advanced to the cecum which was identified by transillumination in the right lower quadrant, identification of the ileocecal valve, appendiceal orifice, and cecal strap. Color, texture, mucosa, and anatomy of the colon were carefully examined with the scope. Findings:: Anal canal: normal Rectum:Hemorrhoids. Three sessile polyps measuring 3-6 mm in size. Removed with cold forceps and cold snaer polypectomy. There was immediate post polypectomy bleeding after snare removal of the 6 mm polyp. Hemostasis was controlled by deployment of two resolution endoclips. Sigmoid colon: normal without polyps or inflammatory changes Descending colon: normal without polyps or inflammatory changes Splenic flexure: normal Transverse colon: normal without polyps or inflammatory changes Hepatic flexure: normal Ascending colon: normal without polyps or inflammatory changes Cecum: Sessile polyp 5 mm in size. Removed with cold snare polypectomy Terminal ileum: not visualized Impression: Polyp of cecum Polyps of rectum Recommendations:: Await pathology results Repeat colonoscopy most likely in 3-5 years (3 years if all polyps are adenomatous) Complications:: Post polypectomy bleeding. Hemostasis controlled wiht deployment of endoclips Estimated blood obtained (mL): 1 Colonoscopy Component Colonoscopy Component Was a colonoscopy performed during today's procedure?: Yes Recommended follow up colonoscopy of at least 10 years?: Yes
[2023-02-20 11:35] VITALS: BP 119/74; PULSE 75; RESP 16; O2SAT 96
[2023-02-20 11:45] VITALS: BP 132/75; PULSE 82; RESP 18; O2SAT 98
[2023-02-20 11:55] VITALS: BP 127/80; PULSE 81; RESP 18; O2SAT 98
== END 2023-02-20 12:05 | disposition home or self-care (01) ==
PROVIDERS: PCP Emergency Medicine; Visit Provider Internal Medicine
PROC: 0DJD8ZZ Inspection of Lower Intestinal Tract, Via Natural or Artificial Opening Endoscopic (ICD-10-PCS; CPT 45378; principal; 2023-02-20 11:30)
DX: Z12.11 Encounter for screening for malignant neoplasm of colon (principal); Z86.010 Personal history of colon polyps; Z80.0 Family history of malignant neoplasm of digestive organs; K64.8 Other hemorrhoids; D12.0 Benign neoplasm of cecum
CPT/HCPCS: 45385

== ENCOUNTER 2023-03-30 09:53 | Emergency (ER) | payer BC, SELFPAY ==
[2023-03-30 10:00] VITALS: BP 146/88; PULSE 93; RESP 20; TEMP 37.2; O2SAT 98; BMI 26.4
--- NOTE | 2023-03-30 10:01 | EXP.UTC ---
Discharge Plan Disposition Patient Disposition: Home, Self-Care Condition: Good Prescriptions Prescriptions: New oseltamivir [Tamiflu] 75 mg capsule 75 mg PO BID Qty: 10 0RF methylprednisolone 4 mg Tablets,Dose Pack 4 mg PO DIRECTED 6 Days Qty: 21 0RF Rx Instructions: Take 1 pack as directed for 6 days benzonatate [benzonatate] 100 mg capsule 100 mg PO TIDP PRN (Reason: Cough) Qty: 30 0RF No Action pantoprazole 40 mg tablet,delayed release (DR/EC) 40 mg PO DAILY Referrals Follow up/Referrals: Nikita Espana DO [Primary Care Provider] - See instructions Activity Restrictions/Add. Instructions Additional Instructions/Restrictions: Drink plenty of fluids. Take tylenol or ibuprofen for pain or fever. Take one of these regularly for the next few days. Take the medications as directed. Follow up with your regular doctor. GO TO THE ER FOR ANY WORSENING SYMPTOMS Clinical Impressions Clinical Impression: Influenza A, Exposure to 2019 novel coronavirus Instructions Patient Instructions: DI for Influenza -- Adult, Oseltamivir Discharge ED Provider: Waldo Byrd [facility] General Stated complaint: covid exposure fever body aches congestion cough Time Seen by Provider: 03/30/23 10:01 History of Present Illness Provider Complaint: He states that for the past 2 days he has had fever/chills/body aches and sinus congestion. He has been exposed to covid-19. Related Data Home Medications Medication Instructions Recorded Confirmed pantoprazole 40 mg tablet,delayed 40 mg PO DAILY 03/30/23 03/30/23 release Previous Rx's Medication Instructions Recorded benzonatate 100 mg capsule 100 mg PO TIDP PRN Cough #30 caps 03/30/23 methylprednisolone 4 mg tablets in 4 mg PO DIRECTED 6 days #21 tabs 03/30/23 a dose pack oseltamivir 75 mg capsule (Tamiflu) 75 mg PO BID #10 caps 03/30/23 Allergies Allergy/AdvReac Type Severity Reaction Status Date / Time No Known Allergies Allergy Verified 12/13/22 08:25 [facility] Disclaimer: The information contained in this section may have been updated after the patient was seen, as this information can be updated by other users. Medical History Abdominal cramping Abdominal pain Allergic rhinitis Amputation of thumb Anxiety History of gastroesophageal reflux (GERD) Influenza A Insect bite Otitis media Sinusitis URI (upper respiratory infection) Surgical History History of esophagogastroduodenoscopy (EGD) History of hernia repair L groin Family History Mother Cancer Ovarian Social History (Updated 02/20/23 @ 10:24 by Nikita Mendoza RN) Smoking Status: Former smoker alcohol intake: never substance use type: denies use current occupational status: employed and other Travel in the last 8 weeks: Inside the [place] household members: family housing: house marital status: number of children: 2 ROS Obtained: Yes All systems reviewed & no additional complaints except as documented Constitutional Constitutional: Reports chills and Reports fever(s) Eyes Eyes: Denies eye discharge ENT Ears, Nose, Mouth, and Throat: Reports as per HPI Cardiovascular Cardiovascular: Denies chest pain Respiratory Respiratory: Denies chest congestion and Reports cough Gastrointestinal Gastrointestingal: Reports nausea; Denies abdominal pain, constipation, cramping, diarrhea or vomiting Musculoskeletal Musculoskeletal: Denies arthralgias Integumentary/Breasts Skin/Breast: Denies rash Neurologic Neurologic: Denies paresthesias Physical Exam General General appearance: alert and in no apparent distress Head Head exam: atraumatic, normocephalic and normal inspection Eye Eye exam: Present normal appearance, PERRL and EOMI ENT ENT exam: Present normal exam, normal oropharynx, mucous membranes moist, TM's normal bilaterally and normal external ear exam Neck Neck exam: Present normal inspection, full ROM and trachea midline; Absent meningismus or lymphadenopathy Chest Chest inspection: Present normal inspection and symmetric chest wall rise; Absent tenderness Respiratory Respiratory exam: Present normal lung sounds bilaterally; Absent respiratory distress Cardiovascular Cardiovascular exam: Present regular rate and normal rhythm; Absent JVD Abdominal Exam Abdominal exam: Present soft and normal bowel sounds; Absent distention, tenderness or guarding Extremities Exam Extremities exam: Present normal inspection, full ROM and normal capillary refill; Absent calf tenderness Back Exam Back exam: Present normal inspection; Absent tenderness Neurological Exam Neurological exam: Present alert and oriented X3 Psychiatric Psychiatric exam: Present normal affect and normal mood Skin Skin exam: Present warm, dry, intact and normal color Lymphatic Lymphatic Findings: no adenopathy Medical Decision Making Medical Records Medical records reviewed: No I reviewed the patient's medical records. Timmy Inquiry Pt receiving controlled substance: No Lab Data Lab results reviewed: Yes I reviewed the patient's lab results.
[2023-03-30 10:17] LABS: UTC Influenza A Antigen Positive (Negative); UTC Influenza B Antigen Negative (Negative)
[2023-03-30 10:20] VITALS: BP 146/88; PULSE 93; RESP 20; TEMP 37.2
== END 2023-03-30 10:24 | disposition home or self-care (01) ==
PROVIDERS: Emergency Provider Nurse Practitioner Family; PCP Internal Medicine
DX: J10.1 Influenza due to other identified influenza virus with other respiratory manifestations (principal); R50.9 Fever, unspecified; R05.9 Cough, unspecified; R09.81 Nasal congestion; M79.18 Myalgia, other site; Z20.822 Contact with and (suspected) exposure to COVID-19; Z87.891 Personal history of nicotine dependence
CPT/HCPCS: 87635; 87804; 99212; 99214; G0463

== ENCOUNTER 2023-04-07 08:31 | Emergency (ER) | payer BC, SELFPAY ==
[2023-04-07 08:50] VITALS: BP 150/77; PULSE 63; RESP 18; TEMP 37.2; O2SAT 97; BMI 26.5
--- NOTE | 2023-04-07 09:17 | EXP.UTC ---
Discharge Plan Disposition Patient Disposition: Home, Self-Care Condition: Good Prescriptions Prescriptions: New amoxicillin-pot clavulanate 500-125 mg Tablet 1 tab PO Q12H Qty: 20 0RF pseudoephedrine HCl [Sudafed 12 Hour] 120 mg tablet extended release 120 mg PO Q12H PRN (Reason: nasal congestion) Qty: 20 0RF No Action pantoprazole 40 mg tablet,delayed release (DR/EC) 40 mg PO DAILY Referrals Follow up/Referrals: Nikita Espana DO [Primary Care Provider] - See instructions Activity Restrictions/Add. Instructions Additional Instructions/Restrictions: Take medication as prescribed Follow up with your Family Doctor if no improvement or any worrsening of symptoms Humidifer/Vaporizer may help with nasal congestion and cough Straight to ER if any life threatening symptoms Clinical Impressions Clinical Impression: Sinusitis Qualifiers: Sinusitis location: unspecified location Chronicity: unspecified Qualified Code(s): J32.9 - Chronic sinusitis, unspecified Instructions Patient Instructions: DI for Sinusitis, Sinusitis Discharge ED Provider: Sharmaine Freed [facility] [place] HPI General Stated complaint: dizzy, head congestion Mode of Arrival: Ambulatory Source of Information: Patient Limitations: No Limitations Time Seen by Provider: 04/07/23 09:18 Description of Symptoms (Recalled from Triage Doc. by RN): PATIENT C/O SINUS PRESSURE, COUGH, OCCASIONAL DIZZINESS WITH COUGH, AND LEFT EAR PAIN HEENT Symptoms (Recalled from RN notes): Yes Resp Symptoms (Recalled from RN notes): Yes Skin Symptoms (Recalled from RN notes): No MS Symptoms (Recalled from RN notes): No Functional Status (Recalled from RN notes): WNL History of Present Illness Provider Complaint: Patient states that he had the flu a week or so ago States that now he is having pain and pressure in his left ear, sinus pain and pressure and pressure behind his eyes States that he has a bad taste in his mouth from the sinus infection so today he came in to get checked Related Data Home Medications Medication Instructions Recorded Confirmed pantoprazole 40 mg tablet,delayed 40 mg PO DAILY 03/30/23 04/07/23 release Previous Rx's Medication Instructions Recorded amoxicillin 500 mg-potassium 1 tab PO Q12H #20 tabs 04/07/23 clavulanate 125 mg tablet pseudoephedrine HCl 120 mg 120 mg PO Q12H PRN nasal 04/07/23 tablet,extended release (Sudafed congestion #20 tabs 12 Hour) Allergies Allergy/AdvReac Type Severity Reaction Status Date / Time No Known Allergies Allergy Verified 12/13/22 08:25 Worker's Comp Is this a Worker's Comp case?: No [facility] Disclaimer: The information contained in this section may have been updated after the patient was seen, as this information can be updated by other users. Medical History Abdominal cramping Abdominal pain Allergic rhinitis Amputation of thumb Anxiety History of gastroesophageal reflux (GERD) Influenza A Insect bite Otitis media Sinusitis URI (upper respiratory infection) Surgical History History of esophagogastroduodenoscopy (EGD) History of hernia repair L groin Family History Mother Cancer Ovarian Social History (Updated 02/20/23 @ 10:24 by Nikita Mendoza RN) Smoking Status: Former smoker alcohol intake: never substance use type: denies use current occupational status: employed and other Travel in the last 8 weeks: [place] the [place] household members: family housing: house marital status: number of children: 2 ROS Obtained: Yes All systems reviewed & no additional complaints except as documented and Yes Systems reviewed as appropriate & no additional complaints except as documented Constitutional Constitutional: Reports system reviewed and no additional complaints, except as documented and Reports as per HPI ENT Ears, Nose, Mouth, and Throat: Reports system reviewed and no additional complaints, except as documented, Reports as per HPI, Reports otalgia, Reports sinus pain and Reports sinus pressure Cardiovascular Cardiovascular: Reports system reviewed and no additional complaints, except as documented and Reports as per HPI Respiratory Respiratory: Reports system reviewed and no additional complaints, except as documented and Reports as per HPI Gastrointestinal Gastrointestingal: Reports system reviewed and no additional complaints, except as documented and as per HPI Physical Exam General General appearance: alert and in no apparent distress ENT ENT exam: Present mucous membranes moist Expanded ENT Exam TM/Canal exam: Left TM: erythema and bulging Nose exam: Present sinus tenderness Respiratory Respiratory exam: Present normal lung sounds bilaterally; Absent respiratory distress or wheezes Cardiovascular Cardiovascular exam: Present regular rate, normal rhythm and normal heart sounds Neurological Exam Neurological exam: Present alert, oriented X3 and normal gait Medical Decision Making Timmy Inquiry Pt receiving controlled substance: No Timmy was queried for this patient: No Vital Signs: 04/07/23 08:50 Temperature 98.9 F Temperature Source Oral Pulse Rate [Right Brachial] 63 Respiratory Rate 18 Blood Pressure [Right Arm] 150/77 H Blood Pressure Mean [Right Arm] 101 Blood Pressure Source [Right Arm] Automatic Cuff Blood Pressure Position [Right Arm] Sitting 02 Sat by Pulse Oximetry 97 Oxygen Delivery Method Room Air
[2023-04-07 09:30] VITALS: BP 150/77; PULSE 63; RESP 18; TEMP 37.2; O2SAT 97
== END 2023-04-07 09:33 | disposition home or self-care (01) ==
PROVIDERS: Emergency Provider Nurse Practitioner; PCP Internal Medicine
DX: J01.90 Acute sinusitis, unspecified (principal); R42 Dizziness and giddiness; R09.81 Nasal congestion; H92.02 Otalgia, left ear; K21.9 Gastro-esophageal reflux disease without esophagitis; Z87.891 Personal history of nicotine dependence
CPT/HCPCS: 99212; 99214; G0463

== ENCOUNTER 2023-05-18 02:29 | Emergency (ER) | payer BC, SELFPAY ==
--- NOTE | 2023-05-18 02:30 | ED_ITS ---
Discharge Plan Disposition Patient Disposition: Home, Self-Care Chief Complaint: Abdominal Pain Prescriptions Prescriptions: No Action pantoprazole 40 mg tablet,delayed release (DR/EC) 40 mg PO DAILY pseudoephedrine HCl [Sudafed 12 Hour] 120 mg tablet extended release 120 mg PO Q12H PRN (Reason: nasal congestion) Qty: 20 0RF alprazolam 0.25 mg tablet 0.25 mg PO HSP PRN (Reason: Anxiety) Referrals Follow up/Referrals: Ted Sanchez MD [Primary Care Provider] - See instructions Activity Restrictions/Add. Instructions Additional Instructions/Restrictions: Please follow-up with your primary care provider. Please return to the emergency department if you develop any new or worsening symptoms or become c oncerned for your health. Clinical Impressions Clinical Impression: Abdominal pain Qualifiers: Abdominal location: epigastric Qualified Code(s): R10.13 - Epigastric pain Instructions Patient Instructions: DI for Acute Abdominal Pain Discharge ED Provider: Derrick Cruz General Adult HPI General Chief complaint: Abdominal Pain Stated complaint: Stomach pain Time Seen by Provider: 05/18/23 02:30 History of Present Illness HPI narrative: 52-year-old male presents with crampy epigastric abdominal pain. He reports that he gets pretty significant cramps every time he eats raw vegetables. He reports that he ate a salad and a couple of oranges yesterday and he has been having intermittent crampy epigastric abdominal pain since that time. He reports that he has been seen for this in the past and it has resolved with Bentyl. He reports that he has been having normal bowel movements. Denies any urinary symptoms. Denies any history of abdominal surgery. Reports that he had a negative colonoscopy recently. Related Data Home Medications Medication Instructions Recorded Confirmed pantoprazole 40 mg tablet,delayed 40 mg PO DAILY 03/30/23 05/18/23 release alprazolam 0.25 mg tablet 0.25 mg PO HSP PRN Anxiety 05/18/23 05/18/23 Previous Rx's Medication Instructions Recorded pseudoephedrine HCl 120 mg 120 mg PO Q12H PRN nasal 04/07/23 tablet,extended release (Sudafed congestion #20 tabs 12 Hour) Allergies Allergy/AdvReac Type Severity Reaction Status Date / Time No Known Allergies Allergy Verified 12/13/22 08:25 [facility] Disclaimer: The information contained in this section may have been updated after the patient was seen, as this information can be updated by other users. Medical History Abdominal cramping Abdominal pain Allergic rhinitis Amputation of thumb Anxiety History of gastroesophageal reflux (GERD) Influenza A Insect bite Otitis media Sinusitis URI (upper respiratory infection) Surgical History History of esophagogastroduodenoscopy (EGD) History of hernia repair L groin Family History Mother Cancer Ovarian Social History (Updated 02/20/23 @ 10:24 by Nikita Mendoza RN) Smoking Status: Never smoker alcohol intake: never substance use type: denies use current occupational status: employed and other Travel in the last 8 weeks: [place] the [place] household members: family housing: house marital status: number of children: 2 ROS Obtained: Yes All systems reviewed & no additional complaints except as documented Physical Exam General General appearance: alert and in no apparent distress Head Head exam: atraumatic and normocephalic Eye Eye exam: Present normal appearance, PERRL and EOMI ENT ENT exam: Present normal oropharynx and normal external ear exam Neck Neck exam: Present normal inspection and full ROM Chest Chest inspection: Present normal inspection and symmetric chest wall rise; Absent tenderness Respiratory Respiratory exam: Present normal lung sounds bilaterally; Absent respiratory distress Cardiovascular Cardiovascular exam: Present regular rate and normal rhythm Abdominal Exam Abdominal exam: Present soft; Absent distention, tenderness or guarding Extremities Exam Extremities exam: Present normal inspection; Absent edema or joint swelling Back Exam Back exam: Present normal inspection; Absent tenderness Neurological Exam Neurological exam: Present alert and oriented X3; Absent motor sensory deficit Psychiatric Psychiatric exam: Present normal affect and normal mood Skin Skin exam: Present warm, dry and normal color Lymphatic Lymphatic Findings: no adenopathy Medical Decision Making Medical Records Medical records reviewed: Yes I reviewed the patient's medical records. Timmy Inquiry Pt receiving controlled substance: No Timmy was queried for this patient: No Vital Signs: 05/18/23 02:38 05/18/23 02:36 Temperature 97.8 F Temperature Source Oral Pulse Rate 71 Pulse Rate [Radial] 72 Respiratory Rate 18 Blood Pressure 140/76 Blood Pressure [Right Arm] 140/76 Blood Pressure Mean [Right Arm] 97 Blood Pressure Source [Right Arm] Automatic Cuff Blood Pressure Position [Right Arm] Sitting 02 Sat by Pulse Oximetry 97 98 Oxygen Delivery Method Room Air Lab Data Lab results reviewed: Yes I reviewed the patient's lab results. Orders (Tests/Meds): ED MEDICATIONS Discontinued Medications Generic Name Dose Route Start Last Admin Trade Name Nany PRN Reason Stop Dose Admin Dicyclomine HCl 20 mg 05/18/23 02:36 05/18/23 02:45 Dicyclomine 20 Mg/2ml Vial IM 05/18/23 02:37 20 mg ONCE ONE Administration Medical Decision Narrative: 52-year-old male presents with recurrent crampy abdominal pain after eating raw vegetables. He reports that his symptoms are similar to prior episodes. He requests a shot of Bentyl. I discussed with him the utility of obtaining labs and CT imaging. He reports he does not feel they are necessary. Differential diagnosis includes gastroenteritis, bowel obstruction, food allergy, food intolerance, pancreatitis. Patient has a benign exam and did not history, but he reports that his symptoms are consistent with prior episodes. Patient given 20 mg of IM Bentyl. Will reassess. On reassessment patient reports symptomatic improvement. My best guess is that he has increased bowel gas production with consumption of raw vegetables that produces his abdominal pain. Overall, given benign exam low concern for emerg ent pathology at this time. Patient discharged in stable condition with return precautions. Procedures Risk/Benefits of Procedure(s) Were Explained: Yes Critical Care Critical Care Time Critical Care Time: No
[2023-05-18 02:36] VITALS: BP 140/76; PULSE 71; O2SAT 98
[2023-05-18 02:38] VITALS: BP 140/76; PULSE 72; RESP 18; TEMP 36.6; O2SAT 97; BMI 25.7
[2023-05-18] MEDS: DICYCLOMINE 20 MG/2ML VIAL IM (02:45)
[2023-05-18 03:00] VITALS: BP 122/72; PULSE 69; RESP 18; O2SAT 98
[2023-05-18 03:26] VITALS: BP 122/72; PULSE 69; RESP 16; TEMP 36.7; O2SAT 98
== END 2023-05-18 03:28 | disposition home or self-care (01) ==
PROVIDERS: Emergency Provider Emergency Medicine; PCP Family Medicine
DX: R10.13 Epigastric pain (principal)
CPT/HCPCS: 96372; 99283

== ENCOUNTER 2024-01-04 15:27 | Emergency (ER) | payer BC, SELFPAY ==
--- NOTE | 2024-01-04 15:33 | PC.NURSE ---
Patient refused to be stuck by a needle at this time. 1531 refused finger stick and to get out of his clothes.
[2024-01-04 15:38] VITALS: BP 185/70; PULSE 90; RESP 20; TEMP 36.7; O2SAT 100
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
[2024-01-04 15:46] VITALS: BP 181/64; PULSE 90; RESP 20; TEMP 36.7; O2SAT 100; BMI 28.7
--- NOTE | 2024-01-04 16:00 | HMH.EDGENADL ---
Discharge Plan Disposition Patient Disposition: Home, Self-Care Prescriptions Prescriptions: New cyclobenzaprine 10 mg tablet 10 mg PO TID PRN (Reason: muscle spasm) 5 Days Qty: 15 0RF ibuprofen 800 mg tablet 800 mg PO TID PRN (Reason: pain) 7 Days Qty: 20 0RF No Action omeprazole 20 mg capsule,delayed release(DR/EC) 20 mg PO DAILY azelastine 137 mcg (0.1 %) spray,non-aerosol 2 spray intranasal BID Qty: 30 2RF Rx Instructions: administer into each nostril methylprednisolone [Medrol (Akin)] 4 mg tablets,dose pack See Rx Instructions PO PER PKG DIR Qty: 21 0RF Rx Instructions: PO PER PKG DIR alprazolam 0.25 mg tablet 0.25 mg PO HSP PRN (Reason: Anxiety) Qty: 30 5RF Referrals Follow up/Referrals: Ted Sanchez MD [Primary Care Provider] - See instructions Activity Restrictions/Add. Instructions Additional Instructions/Restrictions: With shared decision making we opted to not do aggressive CT imaging and lab work but if you get significantly worse please return to the emergency department. You have been prescribed a high-dose anti-inflammatory medication and muscle relaxer. Clinical Impressions Clinical Impression: Blunt trauma, Abrasion of face, Abrasion of chest wall, Abrasion of abdominal wall, Abrasion of leg, Contusion of right thigh Print Language Print Language: Israeli Discharge ED Provider: Tristen Mcduffie General Adult HPI General Chief complaint: Extremity Injury, Lower Stated complaint: AO10/ RT leg inj Time Seen by Provider: 01/04/24 15:37 Mode of Arrival: Wheelchair Source of Information: Patient Limitations: No Limitations Description of Symptoms (Recalled from ER Triage Doc. by RN): pt states he was outside cutting down tree and the tree rolled on top of him. pt manly complains of pain in right leg but has numerous abrasions all over body including face, arms, right chest, and both legs. upon triage patient refuses to be stuck for fbs testing and iv for labs. er md at bedside and fast exam negative History of Present Illness HPI narrative: Patient is a 53-year-old male presenting today after blunt trauma. States that he was cutting a large tree about 1-1/2 feet in diameter and half of the tree was already down and he was cutting off the more proximal half of the tree and states that it got away from him and rolled onto him rolled directly over his face chest abdomen but primarily onto his right thigh. His only complaint right now is right thigh pain and he came to the Emergency Department only to make sure that he did not break his leg. He was able to ambulate on scene. He is not up-to-date on tetanus. He denies currently any chest abdomen pelvis long bone or head pain outside of his right thigh pain. He does have some abrasions to his face chest abdomen and legs. Related Data Home Medications ?Medication ?Instructions ?Recorded ?Confirmed omeprazole 20 mg capsule,delayed 20 mg PO DAILY 09/05/23 10/22/23 release Previous Rx's ?Medication ?Instructions ?Recorded alprazolam 0.25 mg tablet 0.25 mg PO HSP PRN Anxiety #30 tabs 07/01/23 azelastine 137 mcg (0.1 %) nasal 2 spray intranasal BID #30 mL 10/22/23 spray methylprednisolone 4 mg tablets in See Rx Instructions PO PER PKG DIR 10/22/23 a dose pack (Medrol (Akin)) #21 tabs cyclobenzaprine 10 mg tablet 10 mg PO TID PRN muscle spasm 5 01/04/24 days #15 tabs ibuprofen 800 mg tablet 800 mg PO TID PRN pain 7 days #20 01/04/24 tabs Allergies Allergy/AdvReac Type Severity Reaction Status Date / Time No Known Allergies Allergy Verified 10/22/23 10:08 [facility] Disclaimer: The information contained in this section may have been updated after the patient was seen, as this information can be updated by other users. Medical History (Updated 01/04/24 @ 15:59 by Tristen Mcduffie MD) Dizziness Impacted cerumen, left ear Vertigo Amputation of thumb Anxiety Insect bite Otitis media History of gastroesophageal reflux (GERD) Allergic rhinitis Influenza A Sinusitis URI (upper respiratory infection) Abdominal pain Abdominal cramping Surgical History Hx of thumb surgery History of esophagogastroduodenoscopy (EGD) History of hernia repair Family History Mother Cancer Ovarian Social History Smoking Status: Never smoker alcohol intake: never substance use type: denies use current occupational status: employed and other Travel in the last 8 weeks: Inside the [place] household members: family housing: house marital status: number of children: 2 Other Medical History Have you received the Flu Vaccine for this season: No Have you received the Pneumonia Vaccine: No ROS Obtained: Yes All systems reviewed & no additional complaints except as documented Physical Exam General General appearance: alert and in no apparent distress Head Head exam: other (Abrasion to his nose and chin no lacerations no deformity step-offs no evidence of depressible fracture Mcfarland sign raccoon eyes) Neck Neck exam: Present normal inspection and full ROM; Absent tenderness or meningismus Chest Chest inspection: Present normal inspection, symmetric chest wall rise and other (Chest abrasions) Respiratory Respiratory exam: Present normal lung sounds bilaterally and respiratory distress Cardiovascular Cardiovascular exam: Present regular rate and normal rhythm Abdominal Exam Abdominal exam: Present soft, distention and other (Abdominal abrasions); Absent tenderness Extremities Exam Extremities exam: Present other (Full range of motion there is tenderness over the right lateral aspect of his thigh and quadriceps muscle there are some abrasions on bilateral thighs and anterior tib-fib location but no step-offs or significant deformities he has extension mechanism that is intact and is neurovascular intact) Back Exam Back exam: Absent tenderness (No midline tenderness) Neurological Exam Neurological exam: Present alert and oriented X3 Medical Decision Making Medical Records Screening: Per USPSTF and CDC recommendations, given the prevalence of disease in our region, it is our hospital?s policy to screen for HIV and viral Hepatitis for all patients aged 18 and over and those with ongoing risk factors. Timmy Inquiry Pt receiving controlled substance: No Vital Signs: 01/04/24 15:38 01/04/24 15:46 Temperature 98.1 F 98.1 F Temperature Source Oral Oral Pulse Rate [Right Radial] 90 90 Respiratory Rate 20 20 Blood Pressure [Right Arm] 185/70 H 181/64 H Blood Pressure Mean [Right Arm] 108 103 02 Sat by Pulse Oximetry 100 100 Oxygen Delivery Method Room Air Room Air Orders (Tests/Meds): ED MEDICATIONS Generic Name Dose Route Start Last Admin Trade Name Freq PRN Reason Stop Dose Admin Cyclobenzaprine HCl 10 mg 01/04/24 15:56 Cyclobenzaprine 10mg Tablet PO 01/04/24 15:57 ONCE ONE Ketorolac Tromethamine 30 mg 01/04/24 15:56 Ketorolac 30mg/Ml Vial IM 01/04/24 15:57 ONCE ONE Tetanus/Reduced Diphtheria/Acell Pertussis 0.5 ml 01/04/24 15:56 Tet/Diphth/Pert-Adult 0.5ml Syringe IM 01/04/24 15:57 .ONCE ONE ORDERS Category Date Time Status POCUS Point of Care (ER Only) Stat Exams 01/04/24 15:37 Ordered XR chest portable Stat Exams 01/04/24 15:43 Taken XR femur RT 2V Stat Exams 01/04/24 15:44 Taken XR knee RT 3V Stat Exams 01/04/24 15:43 Taken XR pelvis 1-2V Stat Exams 01/04/24 15:43 Taken Medical Decision Narrative: Well-appearing 53-year-old male presenting today after a log that he was cutting down rolled over his body causing some abrasions but primarily pain to his right lateral thigh. He has full range of motion compartments are soft in that region he is neurovascularly intact x-rays performed of his femur and knee on my personal interpretation were negative. No obvious bony abnormalities. He also had an E-FAST which was negative and we did a chest and pelvis x-ray which I personally interpreted which were negative for acute cardiopulmonary abnormalities or pelvic abnormalities. He is [place] CT head negative Nexus negative he had no significant pain or tenderness in his head neck chest abdomen pelvis or other long bone on my evaluation. However the mechanism of injury was a very heavy tree that rolled over his body and I offered him full trauma scans and labs however he declined this states that he would like to just have some medicine to go home with and he will return with any significant worsening of his symptoms. He is hemodynamically stable and his workup was otherwise unremarkable. Tetanus was updated Toradol was administered and Flexeril administered ibuprofen and Flexeril were prescribed. I think it is reasonable to not do a aggressive trauma workup at this point given his benign exam. He has been advised to do local wound care on his superficial abrasions and to return with any significant worsening of his symptoms. They understand any risk of internal bleeding or injury by not doing CT imaging and labs and assume responsibility for that and will return with any significant worsening of those symptoms. Procedures Miscellaneous Procedure Procedure Performed: Limited EFAST ultrasound Indication: Blunt trauma Views: [LUQ, RUQ, Pelvis, Limited Cardiac, Limited Thoracic] Interpretation: Peritoneal Free Fluid: No free fluid Pericardial effusion: Absent Right thoracic free Fluid: Absent Left thoracic Free Fluid: Absent Right lung pneumothorax: Absent Left Lung pneumothorax: Absent Impression: Negative EFAST ultrasound Images were saved to permanent archive The study was technically adequate CPT 75060-78 (limited cardiac) 14129-50 (limited abdominal) 82119-14 (chest) This study was performed by me, and I personally interpreted all images/videos. Based on my clinical judgement, these images were adequate and did not necessitate further imaging. Critical Care Critical Care Time Critical Care Time: No
[2024-01-04 16:01] VITALS: BP 143/75; PULSE 74; O2SAT 100
[2024-01-04 16:11] VITALS: BP 141/75; PULSE 70; RESP 20; TEMP 36.8; O2SAT 98
[2024-01-04] MEDS: TET/DIPHTH/PERT-ADULT 0.5ML SYRINGE 0.5 ML IM (16:11)
[2024-01-04] MEDS: CYCLOBENZAPRINE 10MG TABLET 10 MG PO (16:12)
--- NOTE | 2024-01-04 17:38 | PC.NURSE ---
Dr. Mcduffie notified of critical finding on pt's knee XR. He asked for staff to get ahold of pt to return to ER. Dr. Mcduffie s/w pt & his at length, pt states he may return.
--- NOTE | 2024-01-04 18:00 | PC.NURSE ---
pt arrived back in ER for further studies and registration placed back on patient tracking board and CT scan was ordered per
--- NOTE | 2024-01-04 18:16 | CT_ITS ---
PROCEDURE INFORMATION: Exam: CT Right Lower Extremity, Knee Exam date and time: 01/04/2024 6:29 PM Age: 53 years old Clinical indication: Pain; Knee; Right; Additional info: Xray report unclear TECHNIQUE: Imaging protocol: CT of the right lower extremity without contrast was performed. Exam focused on the knee. 3D rendering (Not supervised by radiologist): MIP and/or 3D reconstructed images were created by the technologist. Radiation optimization: All CT scans at this facility use at least one of these dose optimization techniques: automated exposure control; mA and/or kV adjustment per patient size (includes targeted exams where dose is matched to clinical indication); or iterative reconstruction. COMPARISON: CR XR KNEE RT 3V 01/04/2024 3:35 PM FINDINGS: Bones/joints: Comminuted fracture involving the anterior medial aspect of the tibial plateau . Anterolateral extension of the fracture plane also identified in the region of the tibial plateau. posterior extension of the fracture plane to the proximal tibial diaphysis. Small suprapatellar effusion. Mild hypoplasia medial femoral eminence Soft tissues: Normal. Other findings: No evidence of significant displacement. IMPRESSION: 1. Comminuted fracture involving the anterior medial aspect of the tibial plateau . Anterolateral extension of the fracture plane also identified in the region of the tibial plateau. 2. Posterior extension of the fracture plane to the proximal tibial diaphysis.
[2024-01-04 19:02] VITALS: BP 148/79; PULSE 80; RESP 20; TEMP 36.8; O2SAT 98
== END 2024-01-04 19:02 | disposition home or self-care (01) ==
PROVIDERS: Emergency Provider Student in an Organized Health Care Education/Training Program; PCP Family Medicine
DX: S82.131A Displaced fracture of medial condyle of right tibia, initial encounter for closed fracture (principal); T14.90XA Injury, unspecified, initial encounter; S70.11XA Contusion of right thigh, initial encounter; S80.819A Abrasion, unspecified lower leg, initial encounter; S30.811A Abrasion of abdominal wall, initial encounter; S20.319A Abrasion of unspecified front wall of thorax, initial encounter; S00.81XA Abrasion of other part of head, initial encounter; W20.8XXA Other cause of strike by thrown, projected or falling object, initial encounter; Y93.89 Activity, other specified; Y92.9 Unspecified place or not applicable; Z23 Encounter for immunization
CPT/HCPCS: 71045; 72170; 73552; 73562; 73700; 90715; 96372; 99285; J1885

== ENCOUNTER 2024-01-09 11:39 | Outpatient (RCR) | payer BC, SELFPAY | END 2024-01-09 15:40 | disposition home or self-care (01) | LOC: PT 11:39 | PROVIDERS: Visit Provider Orthopaedic Surgery | DX: M79.661 Pain in right lower leg (principal); S82.141A Displaced bicondylar fracture of right tibia, initial encounter for closed fracture | CPT/HCPCS: 97760 ==

== ENCOUNTER 2024-01-23 10:11 | Outpatient (CLI) | payer BC, SELFPAY ==
--- NOTE | 2024-01-23 10:16 | XR_ITS ---
PROCEDURE INFORMATION: Exam: XR Right Tibia and Fibula Exam date and time: 01/23/2024 10:18 AM Age: 53 years old Clinical indication: Screening exam; F/u; Additional info: Right tibia FX TECHNIQUE: Imaging protocol: Radiologic exam of the right tibia and fibula. Views: 2 views. COMPARISON: CT KNEE RT WO CON 01/04/2024 6:29 PM FINDINGS: Bones/joints: Redemonstration of mildly comminuted transverse oriented fracture through the tibial metaphysis. Remainder of visualized osseous structures are intact. Alignment is maintained. Joint surfaces are preserved. Soft tissues: Unremarkable. IMPRESSION: Stable appearance of acute nondisplaced transverse fracture tibial metaphysis.
== END 2024-01-23 23:59 | disposition home or self-care (01) ==
LOC: RAD 10:11
PROVIDERS: PCP Family Medicine; Visit Provider Physician Assistant
DX: M79.661 Pain in right lower leg (principal); S82.131A Displaced fracture of medial condyle of right tibia, initial encounter for closed fracture
CPT/HCPCS: 73590

== ENCOUNTER 2024-02-13 08:06 | Outpatient (CLI) | payer BC, SELFPAY ==
--- NOTE | 2024-02-13 08:09 | XR_ITS ---
FINAL REPORT CLINICAL HISTORY: f/u fx COMPARISON: Prior knee films dated 01/04/2024 FINDINGS: RIGHT TIBIA FIBULA: There is a comminuted nondisplaced fracture of the proximal tibia, that appears visually stable when compared to the prior exam of January 03. No significant callus formation is identified. The joint spaces are intact. There is no soft tissue abnormality. IMPRESSION: Comminuted nondisplaced fracture of the proximal tibia, visually stable when compared to the prior exam. No significant callus formation is identified. Reviewed, Interpreted and Dictated by Paul Payne III, MD Transcribed by Prerna Funez Authenticated and [facility]
== END 2024-02-13 23:59 | disposition home or self-care (01) ==
LOC: RAD 08:07
PROVIDERS: PCP Family Medicine; Visit Provider Physician Assistant Surgical
DX: S82.131A Displaced fracture of medial condyle of right tibia, initial encounter for closed fracture (principal)
CPT/HCPCS: 73590

== ENCOUNTER 2024-03-12 08:12 | Outpatient (CLI) | payer BC, SELFPAY ==
--- NOTE | 2024-03-12 08:16 | XR_ITS ---
FINAL REPORT CLINICAL HISTORY: fx f/u x 10 weeks ago COMPARISON: 02/13/2024 FINDINGS: RIGHT TIBIA FIBULA 2 views of the right tibia fibula were obtained. The nondisplaced proximal tibial fracture lines are not as well-visualized consistent with interval healing. No new bony abnormality is identified. IMPRESSION: Interval healing proximal tibial fracture. Reviewed, Interpreted and Dictated by Paul Payne III, MD Transcribed by Windy Ma Authenticated and [facility]
== END 2024-03-12 23:59 | disposition home or self-care (01) ==
LOC: RAD 08:13
PROVIDERS: PCP Family Medicine; Visit Provider Orthopaedic Surgery
DX: S82.131A Displaced fracture of medial condyle of right tibia, initial encounter for closed fracture (principal)
CPT/HCPCS: 73590

== ENCOUNTER 2024-04-03 12:34 | Outpatient (CLI) | payer MEDICAID, SELFPAY ==
--- NOTE | 2024-04-03 12:35 | MR_ITS ---
FINAL REPORT TECHNIQUE: Multiplanar and multisequence imaging the right knee was obtained without contrast. CLINICAL HISTORY: Right knee pain, fracture COMPARISON: X-ray knee dated 01/04/2024, CT knee dated 01/04/2024 FINDINGS: Bones: There is mild bone marrow edema in the proximal tibia. A fracture line from the known fracture from December is faintly visible. There is no depression at the articular surface. No additional areas of bone marrow edema are seen. There is patellofemoral joint degenerative disease. There are no full thickness cartilage defects. Menisci: No meniscal tear is present. Ligaments: No cruciate or collateral ligament tear is present. Tendons/Muscles: The quadriceps and patellar tendons are within normal limits. The biceps femoris tendon and iliotibial tract are intact. The popliteus tendon is normal. Other: There is no joint effusion. Remaining soft tissues are normal. IMPRESSION: Very mild residual bone marrow edema in the proximal tibia from a known fracture in December. There is no depression of the articular surface. No meniscal or ligament tear. Reviewed, Interpreted and Dictated by Tootie Sotelo MD Transcribed by Thelma Cade Authenticated and . [facility]
== END 2024-04-03 23:59 | disposition home or self-care (01) ==
LOC: RAD 12:35
PROVIDERS: PCP Family Medicine; Visit Provider Physician Assistant Surgical
DX: M25.561 Pain in right knee (principal); S82.131A Displaced fracture of medial condyle of right tibia, initial encounter for closed fracture
CPT/HCPCS: 73721

== ENCOUNTER 2024-04-17 09:36 | Outpatient (CLI) | payer MEDICAID, SELFPAY ==
[2024-04-17 19:13] LABS: Alanine Aminotransferase 52 U/L (12-78); Albumin Level 4.4 g/dl (3.5-5.0); Albumin/Globulin Ratio 1.6 (1.1-1.8); Alkaline Phosphatase 91 U/L (38-126); Anion Gap 12.1 mEq/L (5-15); Aspartate Amino Transferase 31 U/L (17-59); Bilirubin,Total 0.5 mg/dl (0.2-1.3); Blood Urea Nitrogen 17 mg/dl (9-20); Calcium 9.5 mg/dl (8.4-10.2); Carbon Dioxide 30 mmol/L (22.0-30.0); Chloride 102 mmol/L (98-107); Estimated Glomerular Filt Rate 64 ml/min (>60); GFR (African American) 77 ML/MIN (>60); Globulin 2.8 g/dL (1.3-3.2); Glucose 97 mg/dl (74-100); Potassium 4.1 mmoL/L (3.5-5.1); Sodium 140 mmol/L (136-145); Total Protein,Serum 7.2 g/dl (6.3-8.2)
[2024-04-17 19:44] LABS: Prostate Specific Ag Screen 0.7 ng/ml (0.0-4.0)
[2024-04-17 20:08] LABS: HIV Combo NEGATIVE (Negative)
[2024-04-17 20:12] LABS: Hepatitis C Ab Qual. W/ RFX NEGATIVE (Negative)
== END 2024-04-17 23:59 | disposition home or self-care (01) ==
LOC: LAB.DROPOF 04-20 09:36
PROVIDERS: PCP Family Medicine; Visit Provider Family Medicine
DX: S82.131A Displaced fracture of medial condyle of right tibia, initial encounter for closed fracture (principal); Z11.59 Encounter for screening for other viral diseases; Z12.5 Encounter for screening for malignant neoplasm of prostate
CPT/HCPCS: 80053; 86803; 87389; G0103

== ENCOUNTER 2024-07-01 20:27 | Emergency (ER) | payer OTHER, SELFPAY ==
[2024-07-01 20:39] VITALS: BP 146/88; PULSE 61; RESP 16; TEMP 36.6; O2SAT 100; BMI 27.8
--- NOTE | 2024-07-01 21:14 | HMH.EDGENADL ---
Discharge Plan Disposition Patient Disposition: Home, Self-Care Chief Complaint: Anxiety Prescriptions Prescriptions: No Action tamsulosin [Flomax] 0.4 mg capsule 0.4 mg PO DAILY Qty: 90 3RF alprazolam 0.25 mg tablet 0.25 mg PO HSP PRN (Reason: Anxiety) Qty: 30 5RF pantoprazole [Protonix] 40 mg tablet,delayed release (DR/EC) 40 mg PO DAILY ibuprofen 800 mg tablet 800 mg PO TID PRN (Reason: pain) 7 Days Qty: 20 0RF Referrals Follow up/Referrals: Ted Sanchez MD [Primary Care Provider] - See instructions Activity Restrictions/Add. Instructions Additional Instructions/Restrictions: At this time it was felt you are safe to be discharged home. If new or worsening symptoms please do not hesitate to return the emergency department. Enjoy your fishing trip. Clinical Impressions Clinical Impression: Panic attack Print Language Print Language: Urdu Discharge ED Provider: Ramesh Gary General Adult HPI General Chief complaint: Anxiety Stated complaint: anxiety attack Time Seen by Provider: 07/01/24 20:48 Mode of Arrival: Ambulatory Source of Information: Patient Description of Symptoms (Recalled from ER Triage Doc. by RN): patient states today around 630pm he went to [place] to get on a plane to fly to [facility] when he began to become very anxious breathing fast and had to get off the plane. he reports a hisory of panic attacks. and wants something to take tonight to chill out as he states. History of Present Illness HPI narrative: Patient is a 53-year-old male with past medical history of severe anxiety relating to flight who presents to the emergency department for evaluation of anxiety after boarding a plane. Patient's family went to [facility] earlier today he was post to join them by flight when he got in the plane had severe anxiety causing him to de plane. He presents here for continued evaluation because he is severely anxious No trauma, no ingestions. Patient did not take any Xanax which was prescribed to him because it was with his who is in [place]. No other acute complaints at this time. Please note that above description of symptoms, in this electronic medical record under categorization of recalled from ER triage doctor by RN are reflective of an initial nursing assessment, however, is not reflective of my full history and physical exam that was personally taken and clarified. Consequentially, this preceding description of symptoms, which may include the patient's categorized chief complaint in the EMR, do not reflect my personal clinical impression, and the ultimate description of history of present illness and patient stated complaints should be deferred to this section of the note. Unless stated otherwise or congruent with this section of the note, additional signs, symptoms, or incongruence should be interpreted as inaccurate with my clinical impression. Related Data Home Medications ?Medication ?Instructions ?Recorded ?Confirmed pantoprazole 40 mg tablet,delayed 40 mg PO DAILY 07/01/24 07/01/24 release (Protonix) Previous Rx's ?Medication ?Instructions ?Recorded ibuprofen 800 mg tablet 800 mg PO TID PRN pain 7 days #20 01/04/24 tabs alprazolam 0.25 mg tablet 0.25 mg PO HSP PRN Anxiety #30 tabs 04/17/24 tamsulosin 0.4 mg capsule (Flomax) 0.4 mg PO DAILY #90 caps 04/17/24 Allergies Allergy/AdvReac Type Severity Reaction Status Date / Time No Known Allergies Allergy Verified 07/01/24 09:58 [facility] Disclaimer: The information contained in this section may have been updated after the patient was seen, as this information can be updated by other users. Medical History Dizziness Impacted cerumen, left ear Vertigo Amputation of thumb Anxiety Insect bite Otitis media History of gastroesophageal reflux (GERD) Allergic rhinitis Influenza A Sinusitis URI (upper respiratory infection) Abdominal pain Abdominal cramping Surgical History Hx of thumb surgery History of esophagogastroduodenoscopy (EGD) History of hernia repair L groin Family History Mother Cancer Ovarian Social History Smoking Status: Never smoker alcohol intake: never substance use type: denies use current occupational status: employed and other Travel in the last 8 weeks: [place] the [place] household members: family housing: house marital status: number of children: 2 Have you lived/traveled outside US in past 30 days?: No Contact w/someone who lives/traveled outside US past 30 days?: No Exposure to someone with infectious disease in past 14 days?: No Do you have a fever (greater than 100.4 F or 38 C)?: No Have you tested positive for COVID-19: No Exposed to someone with COVID-19 in past 14 days?: No Do you have a sore throat?: No Do you have a cough?: No Do you have any weakness?: No Do you have any diarrhea?: No Are you experiencing any unusual bleeding?: No Do you have any muscle aches/pain?: No Do you have any abdominal pain?: No Are you experiencing loss of taste or smell?: No Other Medical History Have you received the Flu Vaccine for this season: No Have you received the Pneumonia Vaccine: No ROS Obtained: Yes Systems reviewed as appropriate & no additional complaints except as documented Physical Exam General General appearance: alert and anxious Head Head exam: atraumatic and normocephalic Eye Eye exam: Present PERRL ENT ENT exam: Present mucous membranes moist Neck Neck exam: Present normal inspection Chest Chest inspection: Present normal inspection and symmetric chest wall rise Respiratory Respiratory exam: Absent respiratory distress Cardiovascular Cardiovascular exam: Present regular rate and normal rhythm Extremities Exam Extremities exam: Present normal inspection Neurological Exam Neurological exam: Present alert and oriented X3 Psychiatric Psychiatric exam: Present normal affect Skin Skin exam: Present warm and dry Medical Decision Making Medical Records Screening: Per USPSTF and CDC recommendations, given the prevalence of disease in our region, it is our hospital?s policy to screen for HIV and viral Hepatitis for all patients aged 18 and over and those with ongoing risk factors. Timmy Inquiry Pt receiving controlled substance: No Vital Signs: 07/01/24 20:39 Temperature 97.9 F Temperature Source Oral Pulse Rate [Right] 61 Respiratory Rate 16 Blood Pressure [Right Arm] 146/88 H Blood Pressure Mean [Right Arm] 107 Blood Pressure Source [Right Arm] Automatic Cuff Blood Pressure Position [Right Arm] Sitting 02 Sat by Pulse Oximetry 100 Oxygen Delivery Method Room Air Orders (Tests/Meds): ED MEDICATIONS Discontinued Medications Generic Name Dose Route Start Last Admin Trade Name Freq PRN Reason Stop Dose Admin Alprazolam 1 mg 07/01/24 21:14 07/01/24 21:30 Alprazolam 1mg Tablet PO 07/01/24 21:15 1 mg ONCE ONE Administration Medical Decision Narrative: In summary patient 53-year-old male with past medical history described above who presents emergency department for evaluation of severe anxiety after boarding a plane with known flight anxiety. Patient is hemodynamically stable and nontoxic-appearing but arrival, afebrile. Given clear story and severe anxiety related to the situation anxiolysis will be attempted with 1 mg of Xanax and patient wanted go observation. He has a ride home. The patient was placed in observation status at 9:16 PM. Medical necessity for observational status is serial physical exams in the setting of severe anxiety. Patient underwent a brief period of observation and had no excessive somnolence. Given this patient is appropriate for discharge at this time was given return precautions. Total time in observation 30 minutes. Critical Care Critical Care Time Critical Care Time: No
[2024-07-01] MEDS: ALPRAZolam 1MG TABLET 1 MG PO (21:30)
--- NOTE | 2024-07-01 21:32 | PC.NURSE ---
Pt medicated for anxiety Skin pink warm and dry Resp full and easy Speech clear and appropriate
[2024-07-01 21:47] VITALS: BP 140/80; PULSE 61; RESP 16; TEMP 36.8; O2SAT 98
== END 2024-07-01 21:53 | disposition home or self-care (01) ==
PROVIDERS: Emergency Provider Emergency Medicine; PCP Family Medicine
DX: F41.0 Panic disorder [episodic paroxysmal anxiety] (principal)
CPT/HCPCS: 99283

== ENCOUNTER 2024-08-25 07:39 | Outpatient (CLI) | payer SELFPAY ==
--- NOTE | 2024-08-25 08:00 | US_ITS ---
FINAL REPORT CLINICAL HISTORY: RUQ Abdominal Pain COMPARISON: 11/05/2022 FINDINGS: Sonographic images of the right upper quadrant were obtained. The pancreas is partially obscured.The liver has an unremarkable appearance. The gallbladder is incompletely distended. There are tiny stones versus sludge in the gallbladder. The gallbladder wall appears slightly thickened, however, this may be in part due to incomplete distention. The common duct measures 5 mm. Limited images of the right kidney are unremarkable. IMPRESSION: Small stones versus sludge present in the gallbladder, with an incompletely distended gallbladder. No biliary ductal dilatation is present. Reviewed, Interpreted and Dictated by Christopher Mueller MD Transcribed by Prerna Funez Authenticated and [facility]
== END 2024-08-25 23:59 | disposition home or self-care (01) ==
PROVIDERS: PCP Family Medicine; Visit Provider Family Medicine
DX: K82.8 Other specified diseases of gallbladder (principal); R93.5 Abnormal findings on diagnostic imaging of other abdominal regions, including retroperitoneum; R10.11 Right upper quadrant pain; R10.13 Epigastric pain
CPT/HCPCS: 76705

== ENCOUNTER 2024-09-03 23:38 | Emergency (ER) | payer MEDICAID, SELFPAY ==
[2024-09-03 23:46] VITALS: BP 153/85; PULSE 68; RESP 16; TEMP 36.6; O2SAT 99; BMI 27.9
[2024-09-04] MEDS: HYDROCODONE/APAP 5/325 MG TABLET 1 TAB PO (00:16)
[2024-09-04] MEDS: ONDANSETRON 4MG ODT 4 MG SL (00:16)
--- NOTE | 2024-09-04 00:25 | ECG_ITS ---
APPROVED REPORT Exam: Resting ECG HR:60 bpm ECG Measurements Heart Rate 60 AXES NH 144 P 42 QRSd 94 QRS 46 QT 398 T -7 QTc 399 Conclusion SINUS RHYTHM PROBABLE INFERIOR MYOCARDIAL INFARCTION , OF INDETERMINATE AGE [35 ms Q WAVE IN II/aVF] No STEMI Electronically signed by : PHYLLIS VENCES, 09/04/2024 03:54:16
[2024-09-04 00:41] VITALS: BP 142/75; PULSE 63; RESP 18; TEMP 36.7; O2SAT 100
--- NOTE | 2024-09-04 00:41 | HMH.EDGENADL ---
Discharge Plan Disposition Patient Disposition: Home, Self-Care Condition: Fair Prescriptions Prescriptions: No Action tamsulosin [Flomax] 0.4 mg capsule 0.4 mg PO DAILY Qty: 90 3RF alprazolam 0.25 mg tablet 0.25 mg PO HSP PRN (Reason: Anxiety) Qty: 30 5RF pantoprazole [Protonix] 40 mg tablet,delayed release (DR/EC) 40 mg PO DAILY Qty: 30 2RF ibuprofen 800 mg tablet 800 mg PO TID PRN (Reason: pain) 7 Days Qty: 20 0RF Referrals Follow up/Referrals: Ted Sanchez MD [Primary Care Provider, Family Practice] - See instructions Activity Restrictions/Add. Instructions Additional Instructions/Restrictions: You were evaluated in the ER and are believed to be appropriate for discharge at this time. Keep your appointment with the general surgery office as scheduled. Avoid fatty foods or anything that you know worsens symptoms. Return to the ER with any new, worsening, or otherwise concerning symptoms. Clinical Impressions Clinical Impression: Biliary colic Print Language Print Language: Telugu Discharge ED Provider: Poly Cochran Adult HPI General Chief complaint: PAIN Stated complaint: abdominal pain Time Seen by Provider: 09/03/24 23:53 Mode of Arrival: Ambulatory Source of Information: Patient Description of Symptoms (Recalled from ER Triage Doc. by RN): Patient had appointment w/Jagjit today for gallbladder- marzenaran cencelled- hes having pain between his shoulder blades and would like for us to give him something for the pain to last him until he can get to [facility] next week- refuses IV/Labs History of Present Illness HPI narrative: 54-year-old male presents to the ER for complaints of right upper quadrant pain and pain between his shoulder blades. Patient reports he knows he has a bad gallbladder and was supposed to have follow-up with the general surgery office today for his gallbladder, however it was canceled by the office secondary to the surgeons having to operate. Patient reports tonight he ate roosters and ice cream and then started having right upper quadrant pain radiating to the area between his shoulder blades. Patient reports this is the exact pain he always gets with his gallbladder. He had an ultrasound last week which is why he was following up with general surgery today until the appointment was canceled. Patient reports he has been rescheduled for next week Related Data Previous Rx's ?Medication ?Instructions ?Recorded ibuprofen 800 mg tablet 800 mg PO TID PRN pain 7 days #20 01/04/24 tabs alprazolam 0.25 mg tablet 0.25 mg PO HSP PRN Anxiety #30 tabs 04/17/24 tamsulosin 0.4 mg capsule (Flomax) 0.4 mg PO DAILY #90 caps 04/17/24 pantoprazole 40 mg tablet,delayed 40 mg PO DAILY #30 tabs 07/09/24 release (Protonix) Allergies Allergy/AdvReac Type Severity Reaction Status Date / Time No Known Allergies Allergy Verified 07/01/24 09:58 [facility] Disclaimer: The information contained in this section may have been updated after the patient was seen, as this information can be updated by other users. Medical History Dizziness Impacted cerumen, left ear Vertigo Amputation of thumb Anxiety Insect bite Otitis media History of gastroesophageal reflux (GERD) Allergic rhinitis Influenza A Sinusitis URI (upper respiratory infection) Abdominal pain Abdominal cramping Surgical History Hx of thumb surgery History of esophagogastroduodenoscopy (EGD) History of hernia repair L groin Family History Mother Cancer Ovarian Social History Smoking Status: Never smoker alcohol intake: never substance use type: denies use current occupational status: employed and other Travel in the last 8 weeks?: Inside the [place] household members: family housing: house marital status: number of children: 2 Have you lived/traveled outside [place] in past 30 days?: No Contact w/someone who lives/traveled outside [place] past 30 days?: No Exposure to someone with infectious disease in past 14 days?: No Do you have a fever (greater than 100.4 F or 38 C)?: No Have you tested positive for COVID-19?: No Exposed to someone with COVID-19 in past 14 days?: No Do you have a sore throat?: No Do you have a cough?: No Do you have any weakness?: No Do you have any diarrhea?: No Are you experiencing any unusual bleeding?: No Do you have any muscle aches/pain?: No Do you have any abdominal pain?: Yes Are you experiencing loss of taste or smell?: No Other Medical History Have you received the Flu Vaccine for this season: No Have you received the Pneumonia Vaccine: No ROS Obtained: Yes Systems reviewed as appropriate & no additional complaints except as documented per HPI Physical Exam General General appearance: alert and in no apparent distress Head Head exam: atraumatic and normocephalic Eye Eye exam: Present PERRL and EOMI ENT ENT exam: Present mucous membranes moist Neck Neck exam: Present normal inspection and full ROM Chest Chest inspection: Present symmetric chest wall rise; Absent tenderness Respiratory Respiratory exam: Present normal lung sounds bilaterally; Absent respiratory distress, wheezes or stridor Cardiovascular Cardiovascular exam: Present regular rate and normal rhythm Abdominal Exam Abdominal exam: Present soft and tenderness (very mild RUQ); Absent distention, guarding or rebound Extremities Exam Extremities exam: Present full ROM Back Exam Back exam: Absent paraspinal tenderness or vertebral tenderness Neurological Exam Neurological exam: Present alert and oriented X3; Absent motor sensory deficit Psychiatric Psychiatric exam: Present normal affect and normal mood Skin Skin exam: Present warm and dry Medical Decision Making Medical Records Medical records reviewed: Yes I reviewed the patient's medical records. Screening: Per USPSTF and CDC recommendations, given the prevalence of disease in our region, it is our hospital?s policy to screen for HIV and viral Hepatitis for all patients aged 18 and over and those with ongoing risk factors. MR Comment: Gallbladder ultrasound from end of July demonstrated sludge Timmy Inquiry Pt receiving controlled substance: No Vital Signs: 09/03/24 23:46 09/04/24 00:41 Temperature 97.9 F 98.1 F Temperature Source Oral Pulse Rate 63 Pulse Rate [Right Radial] 68 Respiratory Rate 16 18 Blood Pressure 142/75 H Blood Pressure [Right Arm] 153/85 H Blood Pressure Mean [Right Arm] 107 Blood Pressure Source Automatic Cuff Blood Pressure Source [Right Arm] Automatic Cuff Blood Pressure Position Sitting Blood Pressure Position [Right Arm] Supine 02 Sat by Pulse Oximetry 99 Oxygen Delivery Method Room Air Room Air Orders (Tests/Meds): ED MEDICATIONS Discontinued Medications Generic Name Dose Route Start Last Admin Trade Name Freq PRN Reason Stop Dose Admin Hydrocodone Bitart/Acetaminophen 1 tab 09/04/24 00:08 09/04/24 00:16 Hydrocodone/Apap 5/325 Mg Tablet PO 09/04/24 00:09 1 tab ONCE ONE Administration Ondansetron HCl 4 mg 09/04/24 00:08 09/04/24 00:16 Ondansetron 4mg Odt SL 09/04/24 00:09 4 mg ONCE ONE Administration ORDERS Category Date Time Status POCUS Point of Care (ER Only) Stat Exams 09/04/24 00:02 Ordered ECG Request Stat Y 09/04/24 00:08 Ordered Medical Decision Narrative: In summary, this 54-year-old male with known biliary pathology presents to the emergency department today with right upper quadrant pain and pain radiating between the shoulder blades which he reports is classic of his gallbladder pain. On initial evaluation patient is hemodynamically stable, afebrile, GCS 15, very mild right upper quadrant tenderness to palpation without rebound or guarding, nonacute abdomen, no reproducible shoulder or back pain on exam. Differential diagnosis includes but is not limited to biliary colic, cholelithiasis, cholecystitis, I considered the possibility of transaminitis, hyperbilirubinemia, electrolyte abnormality, among others pancreatitis, and much less likely but still considered ACS,. I recommended labs and ultrasound to the patient. He is adamantly refusing labs stating he knows exactly what is going on and has had this before, he is requesting pain medications hoping to get through to his appointment. He states he gets lightheaded and will faint if labs are drawn. I told the patient it is very difficult for me to complete a full assessment to know whether or not he is safe or having an acute medical emergency without getting IV labs. He understands this and still refuses. He is competent to make this decision. I did perform EKG and right upper quadrant ultrasound, patient understands these are limited exams and limited utility in this situation. EKG personally interpreted demonstrate sinus rhythm, normal axis, normal MO and QTc, no STEMI, nonischemic appearing ECG. Right upper quadrant [id number] ultrasound personally interpreted demonstrates distended gallbladder but no pericholecystic fluid or CBD dilation. See procedure note for details. I discussed with the patient that I would not be prescribing pain medications for him because if he is having that significant of pain that he recurrently needs to be in the ER for it that he should be admitted to the hospital. He understands this and is not requesting long-term prescription for pain medications. He states he is hoping to get enough relief tonight to get the symptoms to go away and hopefully avoid symptoms until he is able to have his outpatient follow-up which is scheduled for early next week. Single dose of [place] as well as Zofran was administered to the patient. He is tolerating oral intake and appropriate for discharge at this time. Patient was given instructions on symptomatic management, follow up instructions to keep his appointment with general surgery, and return precautions for the emergency department. Patient indicated understanding and was discharged in stable condition. Procedures Miscellaneous Procedure Procedure Performed: Limited RUQ ultrasound Indication: Right upper quadrant pain Identified structures: -Gallbladder -Gallbladder wall -Common bile duct -Liver Findings: Sonographic Trevizo sign: Absent Gallstones: Absent Sludge: Present Pericholecystic fluid: Absent Maximal GB wall thickness (mm): 2.2 mm Normal Common bile duct width (mm): 5.7 mm Normal Gallbladder width (cm): 3.63 cm Normal Gallbladder length (cm): 10.13 cm Abnormal Impression: Distended gallbladder with sludge but no pericholecystic fluid Images were saved to permanent archive The study was technically adequate CPT 86560-66 This study was performed by me, and I personally interpreted all images/videos. Based on my clinical judgement, these images were adequate and did not necessitate further imaging. Critical Care Critical Care Time Critical Care Time: No
== END 2024-09-04 00:43 | disposition home or self-care (01) ==
PROVIDERS: Emergency Provider Emergency Medicine; PCP Family Medicine
DX: R10.11 Right upper quadrant pain (principal); K80.50 Calculus of bile duct without cholangitis or cholecystitis without obstruction
CPT/HCPCS: 93005; 99283; Q0162

== ENCOUNTER 2024-09-06 14:48 | Emergency (ER) | payer MEDICAID, SELFPAY ==
[2024-09-06] VITALS (10 sets, daily range): BP systolic 125–155; BP diastolic 56–96; PULSE 65–74; RESP 13–20; TEMP 36.6; O2SAT 97–100; BMI 27.9
--- NOTE | 2024-09-06 14:30 | ECG_ITS ---
APPROVED REPORT Exam: Resting ECG HR:67 bpm ECG Measurements Heart Rate 67 AXES MS 145 P 73 QRSd 95 QRS 75 QT 398 T 40 QTc 414 Conclusion SINUS RHYTHM NORMAL ECG UNCONFIRMED REPORT Electronically signed by : JOÃO DANIELS, 09/07/2024 06:41:29
--- OUTSIDE RECORDS SUMMARY | 2024-09-06 15:04 | XMS_ITS | Clinical Summary ---
Author Organization Healthcare Address [address] [id number] Care Team Providers Care Production Expert Name Role Phone Unavailable Primary Care Provider Unavailabl e Social History Tobacco Use Types Packs/Day Years Used Date Smoking Tobacco: Never Alcohol Use Standard Drinks/Week Comments Yes 0 (1 standard drink = 0.6 oz pur e alcohol) Sex and Gender Information Value Date Recorded Sex Assigned at Not on file Legal Sex Male 8:29 PM EDT Gender Identity Not on file Sexual Orientation Not on file Last Filed Vital Signs Vital Sign Reading Time Taken Comments Blood Pressure - - Pulse - - Temperature - - Respiratory Rate - - Oxygen Saturation - - Inhaled Oxygen Concentration - - Weight 95.3 kg (210 lb 0.2 oz) 03/07/2016 8:24 A M EST Height 177.8 cm (5' 10 ) 03/07/2016 8:24 AM EST Body Mass Index 30.13 03/07/2016 8:24 AM EST Plan of Treatment Not on file
--- NOTE | 2024-09-06 15:29 | XR_ITS ---
PROCEDURE INFORMATION: Exam: XR Chest Exam date and time: 09/06/2024 3:31 PM Age: 54 years old Clinical indication: Other: Chest pain; Additional info: Chest pain no cough TECHNIQUE: Imaging protocol: Radiologic exam of the chest. Views: 2 views. COMPARISON: CR XR CHEST PORTABLE 01/04/2024 3:27 PM FINDINGS: Lungs: Unremarkable. No consolidation. Pleural spaces: Unremarkable. No pleural effusion. No pneumothorax. Heart/Mediastinum: Unremarkable. No cardiomegaly. Bones/joints: No acute bony abnormalities detected. IMPRESSION: Negative chest. No active disease.
--- NOTE | 2024-09-06 15:30 | HMH.EDGENADL ---
Discharge Plan Disposition Chief Complaint: Abdominal Pain Prescriptions Prescriptions: No Action tamsulosin [Flomax] 0.4 mg capsule 0.4 mg PO DAILY Qty: 90 3RF alprazolam 0.25 mg tablet 0.25 mg PO HSP PRN (Reason: Anxiety) Qty: 30 5RF pantoprazole [Protonix] 40 mg tablet,delayed release (DR/EC) 40 mg PO DAILY Qty: 30 2RF ibuprofen 800 mg tablet 800 mg PO TID PRN (Reason: pain) 7 Days Qty: 20 0RF Referrals Follow up/Referrals: eTd Sanchez MD [Primary Care Provider, Family Practice] - See instructions Instructions Patient Instructions: DI for Acute Abdominal Pain Print Language Print Language: Mauritanian Discharge ED Provider: Ramesh Gary General Adult HPI General Chief complaint: Abdominal Pain Stated complaint: abd pain/chest pain Time Seen by Provider: 09/06/24 15:12 Mode of Arrival: Ambulatory Source of Information: Patient Description of Symptoms (Recalled from ER Triage Doc. by RN): pt states after eating tacos about 45min ago he started having a gallbladder attack. pt c/o epigasteric radiating to RUQ pain that is 5/10 and cramping. pt c/o pain between his shoulderblades that rotates substernal that is sharp and 5/10. pt also reports nausea. pt states this is the exact same as his previous gallbladder attacks. pt had an US Saturday and has known stones/sludge. Pt had an appointment with last week that was cancelled by the office. History of Present Illness HPI narrative: Patient is a 54-year-old male with past medical history of recurrent right upper quadrant abdominal pain suspected to be biliary colic pending outpatient surgical evaluation who presents emergency department for evaluation of epigastric and chest pain. No vomiting. Chest pain was concerning to him causing him to come here for continued evaluation. He was seen a couple of days ago in the emergency department and diagnosed with biliary colic and discharged outpatient follow-up. He was supposed to be seen last by one of the surgeons however they had to cancel his appointment due to a likely surgical emergency. No other acute complaints at this time. Please note that above description of symptoms, in this electronic medical record under categorization of recalled from ER triage doctor by RN are reflective of an initial nursing assessment, however, is not reflective of my full history and physical exam that was personally taken and clarified. Consequentially, this preceding description of symptoms, which may include the patient's categorized chief complaint in the EMR, do not reflect my personal clinical impression, and the ultimate description of history of present illness and patient stated complaints should be deferred to this section of the note. Unless stated otherwise or congruent with this section of the note, additional signs, symptoms, or incongruence should be interpreted as inaccurate with my clinical impression. Related Data Previous Rx's ?Medication ?Instructions ?Recorded ibuprofen 800 mg tablet 800 mg PO TID PRN pain 7 days #20 01/04/24 tabs alprazolam 0.25 mg tablet 0.25 mg PO HSP PRN Anxiety #30 tabs 04/17/24 tamsulosin 0.4 mg capsule (Flomax) 0.4 mg PO DAILY #90 caps 04/17/24 pantoprazole 40 mg tablet,delayed 40 mg PO DAILY #30 tabs 07/09/24 release (Protonix) Allergies Allergy/AdvReac Type Severity Reaction Status Date / Time No Known Allergies Allergy Verified 07/01/24 09:58 [facility] Disclaimer: The information contained in this section may have been updated after the patient was seen, as this information can be updated by other users. Medical History Dizziness Impacted cerumen, left ear Vertigo Amputation of thumb Anxiety Insect bite Otitis media History of gastroesophageal reflux (GERD) Allergic rhinitis Influenza A Sinusitis URI (upper respiratory infection) Abdominal pain Abdominal cramping Surgical History Hx of thumb surgery History of esophagogastroduodenoscopy (EGD) History of hernia repair L groin Family History Mother Cancer Ovarian Social History Smoking Status: Former smoker alcohol intake: never substance use type: denies use current occupational status: employed and other Travel in the last 8 weeks?: Inside the [place] household members: family housing: house marital status: number of children: 2 Have you lived/traveled outside US in past 30 days?: No Contact w/someone who lives/traveled outside US past 30 days?: No Exposure to someone with infectious disease in past 14 days?: No Do you have a fever (greater than 100.4 F or 38 C)?: No Have you tested positive for COVID-19?: No Exposed to someone with COVID-19 in past 14 days?: No Do you have a sore throat?: No Do you have a cough?: No Do you have any weakness?: No Do you have any diarrhea?: No Are you experiencing any unusual bleeding?: No Do you have any muscle aches/pain?: No Do you have any abdominal pain?: No Are you experiencing loss of taste or smell?: No Other Medical History Have you received the Flu Vaccine for this season: No Have you received the Pneumonia Vaccine: No ROS Obtained: Yes Systems reviewed as appropriate & no additional complaints except as documented Physical Exam General General appearance: alert and in no apparent distress Head Head exam: atraumatic and normocephalic Eye Eye exam: Present PERRL and EOMI ENT ENT exam: Present mucous membranes moist Neck Neck exam: Present normal inspection Chest Chest inspection: Present normal inspection and symmetric chest wall rise Respiratory Respiratory exam: Present normal lung sounds bilaterally; Absent respiratory distress Cardiovascular Cardiovascular exam: Present regular rate and normal rhythm Abdominal Exam Abdominal exam: Present soft; Absent tenderness, guarding or rebound Extremities Exam Extremities exam: Present normal inspection Neurological Exam Neurological exam: Present alert Psychiatric Psychiatric exam: Present normal affect Skin Skin exam: Present warm and dry Medical Decision Making Medical Records Screening: Per USPSTF and CDC recommendations, given the prevalence of disease in our region, it is our hospital?s policy to screen for HIV and viral Hepatitis for all patients aged 18 and over and those with ongoing risk factors. Timmy Inquiry Pt receiving controlled substance: No Vital Signs: 09/06/24 14:50 09/06/24 14:52 09/06/24 15:00 Temperature 97.8 F Temperature Source Oral Pulse Rate 72 66 Pulse Rate [Left] 72 Respiratory Rate 20 14 13 Blood Pressure 137/89 Blood Pressure [Right Arm] 145/96 H Blood Pressure Mean [Right Arm] 112 Blood Pressure Source [Right Arm] Automatic Cuff Blood Pressure Position [Right Arm] Sitting 02 Sat by Pulse Oximetry 100 100 100 Oxygen Delivery Method Room Air 09/06/24 15:30 09/06/24 16:00 09/06/24 16:30 Temperature Temperature Source Pulse Rate 69 71 69 Pulse Rate [Left] Respiratory Rate Blood Pressure 135/70 150/73 H 136/75 Blood Pressure [Right Arm] Blood Pressure Mean [Right Arm] Blood Pressure Source [Right Arm] Blood Pressure Position [Right Arm] 02 Sat by Pulse Oximetry 98 99 99 Oxygen Delivery Method 09/06/24 17:00 Temperature Temperature Source Pulse Rate 74 Pulse Rate [Left] Respiratory Rate Blood Pressure 155/89 H Blood Pressure [Right Arm] Blood Pressure Mean [Right Arm] Blood Pressure Source [Right Arm] Blood Pressure Position [Right Arm] 02 Sat by Pulse Oximetry 97 Oxygen Delivery Method Lab Data Lab Results 09/06/24 14:51: WBC 8.6, RBC 5.90, Hgb 16.5, Hct 50.1, MCV 84.9, MCH 28.0, MCHC 32.9, RDW 13.0, Plt Count 284, MPV 11.2 H, Neut % (Auto) 47.4, Lymph % (Auto) 37.3, [place] % (Auto) 8.5, Eos % (Auto) 5.5, Baso % (Auto) 1.0, Neut # (Auto) 4.1, Lymph # (Auto) 3.2, [place] # (Auto) 0.7, Eos # (Auto) 0.5 H, Baso # (Auto) 0.1, D-Dimer 0.50, Sodium 141, Potassium 3.4 L, Chloride 103, Carbon Dioxide 29, Anion Gap 12.4, BUN 19, Creatinine 1.10, Estimated Creat Clear 98, Estimated GFR 70, Est GFR ( Amer) 85, Glucose 100, Calcium 9.2, Total Bilirubin 0.8, AST 44, ALT 40, Alkaline Phosphatase 86, Troponin I < 0.01, Total Protein 8.4 H, Albumin 4.6, Globulin 3.8 H, Albumin/Globulin Ratio 1.2, Lipase 99 09/06/24 17:22: Troponin I < 0.01 09/06/24 14:51 09/06/24 14:51 Orders (Tests/Meds): ED MEDICATIONS Generic Name Dose Route Start Last Admin Trade Name Freq PRN Reason Stop Dose Admin Sodium Chloride 10 ml 09/06/24 17:07 09/06/24 17:10 Sodium Chloride 0.9% 10ml Syr (Rad Only) IV 10/06/24 17:06 10 ml NEEDED PRN Administration Maintain IV Site Discontinued Medications Generic Name Dose Route Start Last Admin Trade Name Nany PRN Reason Stop Dose Admin Acetaminophen 1,000 mg 09/06/24 15:29 09/06/24 15:38 Acetaminophen 500mg Tab PO 09/06/24 15:30 1,000 mg ONCE ONE Administration Aspirin 324 mg 09/06/24 15:29 09/06/24 15:37 Aspirin 81mg Chewable Tablet PO 09/06/24 15:30 324 mg ONCE ONE Administration Iopamidol 80 ml 09/06/24 17:07 09/06/24 17:10 Iopamidol-370 (76%);100ml Bottle IV 09/06/24 17:08 80 ml ONCE ONE Administration Morphine Sulfate 4 mg 09/06/24 16:40 09/06/24 16:50 Morphine 4mg/Ml Syringe IV 09/06/24 16:41 4 mg ONCE ONE Administration Ondansetron HCl 4 mg 09/06/24 16:40 09/06/24 16:50 Ondansetron 4mg/2ml Vial IV 09/06/24 16:41 4 mg ONCE ONE Administration Sodium Chloride 50 ml 09/06/24 17:07 09/06/24 17:10 0.9 % Sodium Chloride 50 Ml Vial IV 09/06/24 17:08 50 ml ONCE ONE Administration ORDERS Category Date Time Status CT angio chest - dissection Stat Cat Scan 09/06/24 16:40 Completed CXR 2 view (NOT portable) [XR chest 2V] Stat Exams 09/06/24 15:29 Completed POCUS Point of Care (ER Only) Stat Exams 09/06/24 15:13 Taken CBC w/Auto Diff [Complete Blood Count Auto Diff] Stat Lab 09/06/24 14:51 Completed CMP [Comprehensive Metabolic Panel] Stat Lab 09/06/24 14:51 Completed D-Dimer Stat Lab 09/06/24 14:51 Completed Lipase Stat Lab 09/06/24 14:51 Completed Trop I [Troponin I] Stat Lab 09/06/24 14:51 Completed Troponin I Q3H Lab 09/06/24 17:22 Completed Troponin I Q3H Lab 09/06/24 22:00 Ordered ECG Data Tracing #1: Independently interpreted by me rate is 67, rhythm is regular, axis is normal, no ST elevation in anatomical contiguous leads, QTc 414. Medical Decision Narrative: In summary patient is a 54-year-old male with past medical history described above presents emergency department for evaluation of chest pain. Patient is hemodynamically stable nontoxic-appearing arrival, afebrile. Ultrasound at bedside shows slightly thickened gallbladder just greater than 4 mm, no pericholecystic fluid, no stones, there is sludge in the gallbladder. Patient is not tender. Differential for his chest pain includes referred pain from biliary colic, ACS, noncardiac chest pain, pulmonary embolism, among others. Workup will be conducted with hematologic labs, two-view chest x-ray, EKG, D-dimer. Initial inventions include aspirin, Tylenol. Initial workup reviewed by me, hematologic labs are nonactionable no significant leukocytosis no anemia D-dimer 0.5 no critical electrolyte abnormality or LONNIE initial troponin undetectable OB upon repeat evaluation patient had persistent chest pain rating through to his back with associated right upper quadrant cramping pain. Given this CTA will be ordered to rule out dissection although less likely than no biliary colic. CTA obtained and negative for acute pathology in the chest. The case was discussed with surgeon regarding management, 4 to 4-1/2 mm without obvious pericholecystic fluid no stone and intermittent upper quadrant abdominal pain is borderline and the patients symptoms are tolerable is reasonable to pursue outpatient workup. I had shared decision-making discussion with patient at bedside he wishes to pursue outpatient management at this time. Given this a dose of Toradol will be given as his symptoms were acceptable on repeat evaluation and patient will be discharged with a course of Toradol and Zofran if he becomes nauseous. He will follow-up with Dr. Danielson on Saturday and if he is unable to do that he will follow-up with Dr. Carrero on Saturday and he was given return precautions verbalized understanding. Indication: Chest pain Identified structures: Gallbladder, gallbladder wall Findings: Sonographic Trevizo sign: Absent Gallstones: Absent Sludge: Present Pericholecystic fluid: Absent Maximal GB wall thickness (mm): 4-4.5 mm Abnormal Impression: Gallbladder sludge with slightly thickened gallbladder wall without evidence of pericholecystic fluid negative Trevizo sign Images were saved to permanent archive The study was technically adequate CPT 99092-28 This study was performed by me, and I personally interpreted all images/videos. Based on my clinical judgement, these images were adequate and did not necessitate further imaging. Critical Care Critical Care Time Critical Care Time: No
[2024-09-06 15:34] LABS: Basophils # 0.1 K/mm3 (0-0.2); Eosinophils # 0.5 Kmm3 (0.0-0.4); Eosinophils % 5.5 % (0.1-12.0); Hematocrit 50.1 % (42.0-52.0); Hemoglobin 16.5 g/dL (14.1-18.0); Immature Granulocytes # 0.03 10^3uL; Immature Granulocytes % 0.3 %; Lymphocytes # 3.2 K/mm3 (0.7-4.5); Lymphocytes % 37.3 % (10-50); Mean Corpuscular HGB Conc 32.9 g/dL (31.8-35.4); Mean Corpuscular Volume 84.9 fl (80-94); Mean Platelet Volume 11.2 fl (7.4-10.4); Monocytes # 0.7 K/mm3 (0.1-1.0); Monocytes % 8.5 % (1.7-9.3); Neutrophils # 4.1 K/mm3 (1.8-7.8); Neutrophils % 47.4 % (37.0-80.0); Nucleated Red Blood Cells # 0 10^3/uL; Nucleated Red Blood Cells % 0 %; Platelet Count 284 K/mm3 (142-424); Red Cell Distribution Width-SD 40.1 fL; White Blood Count 8.6 K/mm3 (4.8-10.8)
[2024-09-06] MEDS: ASPIRIN 81MG CHEWABLE TABLET 324 MG PO (15:37)
[2024-09-06] MEDS: ACETAMINOPHEN 500MG TAB 1000 MG PO (15:38)
[2024-09-06 15:52] LABS: Alanine Aminotransferase 40 U/L (12-78); Albumin Level 4.6 g/dl (3.5-5.0); Albumin/Globulin Ratio 1.2 (1.1-1.8); Alkaline Phosphatase 86 U/L (38-126); Anion Gap 12.4 mEq/L (5-15); Aspartate Amino Transferase 44 U/L (17-59); Bilirubin,Total 0.8 mg/dl (0.2-1.3); Blood Urea Nitrogen 19 mg/dl (9-20); Calcium 9.2 mg/dl (8.4-10.2); Carbon Dioxide 29 mmol/L (22.0-30.0); Chloride 103 mmol/L (98-107); Creatinine Clearance Estimated 98 mL/min (50-200); Estimated Glomerular Filt Rate 70 ml/min (>60); GFR (African American) 85 ML/MIN (>60); Globulin 3.8 g/dL (1.3-3.2); Glucose 100 mg/dl (74-100); Lipase 99 U/L (23-300); Potassium 3.4 mmoL/L (3.5-5.1); Sodium 141 mmol/L (136-145); Total Protein,Serum 8.4 g/dl (6.3-8.2)
[2024-09-06 16:27] LABS: Troponin I < 0.01 ng/ml (0.00-0.034)
--- NOTE | 2024-09-06 16:40 | CT_ITS ---
PROCEDURE INFORMATION: Exam: CTA Chest With Contrast Exam date and time: 09/06/2024 4:59 PM Age: 54 years old Clinical indication: Pain; Radiating; Additional info: Cp to back TECHNIQUE: Imaging protocol: Computed tomographic angiography of the chest with contrast. Exam focused on the arteries. 3D rendering (Not supervised by radiologist): MIP and/or 3D reconstructed images were created by the technologist. Radiation optimization: All CT scans at this facility use at least one of these dose optimization techniques: automated exposure control; mA and/or kV adjustment per patient size (includes targeted exams where dose is matched to clinical indication); or iterative reconstruction. Contrast material: ISOVUE 370; Contrast volume: 80 ml; Contrast route: INTRAVENOUS (IV); COMPARISON: CR XR CHEST 2V 09/06/2024 3:31 PM FINDINGS: Pulmonary arteries: Pulmonary vasculature is adequately opacified without filling defects or other evidence of acute pulmonary embolism. Aorta: Unremarkable. No aortic aneurysm. No aortic dissection. Lungs: Minor atelectatic changes lower lung zones otherwise lung arroyo aerated and clear. Pleural spaces: Unremarkable. No pneumothorax. No pleural effusion. Heart: Heart is not significantly enlarged. No detectable coronary artery calcifications. No significant pericardial effusion. Lymph nodes: Unremarkable. No enlarged lymph nodes. Bones/joints: Unremarkable. No acute fracture. Soft tissues: Unremarkable. IMPRESSION: Negative CT angiogram of the chest. No evidence of acute pulmonary embolism.
[2024-09-06] MEDS: MORPHINE 4MG/ML SYRINGE 4 MG IV (16:50)
[2024-09-06] MEDS: ONDANSETRON 4MG/2ML VIAL 4 MG IV (16:50)
[2024-09-06] MEDS: 0.9 % SODIUM CHLORIDE 50 ML VIAL IV (17:10)
[2024-09-06] MEDS: SODIUM CHLORIDE 0.9% 10ML SYR (RAD ONLY) 10 ML IV (17:10)
[2024-09-06] MEDS: IOPAMIDOL-370 (76%);100ML BOTTLE 80 ML IV (17:10)
--- NOTE | 2024-09-06 17:46 | PC.NURSE ---
paged at this time.
[2024-09-06 17:53] LABS: Troponin I < 0.01 ng/ml (0.00-0.034)
[2024-09-06] MEDS: KETOROLAC 30MG/ML VIAL 30 MG IV (18:13)
[2024-09-06] MEDS: AMOXICILLIN/CLAVULANATE POTASSIUM 875/125MG TABLET 1 EACH PO (18:14)
== END 2024-09-06 18:30 | disposition home or self-care (01) ==
PROVIDERS: Emergency Provider Emergency Medicine; PCP Family Medicine
DX: R10.13 Epigastric pain (principal); R07.9 Chest pain, unspecified; K80.50 Calculus of bile duct without cholangitis or cholecystitis without obstruction
CPT/HCPCS: 71046; 71275; 80053; 83690; 84484; 85025; 85378; 93005; 96374; 96375; 99285; J1885; J2270; J2405; Q9967

== ENCOUNTER 2024-09-21 08:23 | Day surgery (SDC) | payer MEDICAID, SELFPAY ==
[2024-09-16 08:21] VITALS: BMI 26.4
[2024-09-21] VITALS (8 sets, daily range): BP systolic 131–173; BP diastolic 54–99; PULSE 60–68; RESP 16–18; TEMP 36.2–36.5; O2SAT 96–100
[2024-09-21] MEDS: LACTATED RINGERS 1000ML 1,000 ML 25 ML IV (08:42)
--- NOTE | 2024-09-21 09:07 | EXP.ANES.CKL ---
[facility] Disclaimer: The information contained in this section may have been updated after the patient was seen, as this information can be updated by other users. Medical History Dizziness Impacted cerumen, left ear Vertigo Amputation of thumb Anxiety Insect bite Otitis media History of gastroesophageal reflux (GERD) Allergic rhinitis Influenza A Sinusitis URI (upper respiratory infection) Abdominal pain Abdominal cramping Surgical History History of intestinal surgery Hx of thumb surgery History of esophagogastroduodenoscopy (EGD) History of hernia repair Family History Mother Cancer Ovarian Social History Smoking Status: Former smoker alcohol intake: never substance use type: denies use current occupational status: employed and other Travel in the last 8 weeks?: [place] the [place] household members: family housing: house marital status: number of children: 2 Have you lived/traveled outside US in past 30 days?: No Contact w/someone who lives/traveled outside US past 30 days?: No Exposure to someone with infectious disease in past 14 days?: No Do you have a fever (greater than 100.4 F or 38 C)?: No Have you tested positive for COVID-19?: No Exposed to someone with COVID-19 in past 14 days?: No Do you have a sore throat?: No Do you have a cough?: No Do you have any weakness?: No Do you have any diarrhea?: No Are you experiencing any unusual bleeding?: No Do you have any muscle aches/pain?: No Do you have any abdominal pain?: No Are you experiencing loss of taste or smell?: No [facility] Anesthesia Checklist Patient Identification Patient Identification: Arm Band Structural Data Admitted From: Home Planned Operative Procedure/s: Laparoscopic Cholecystectomy Consent for Planned Operative Procedure(s) Verified: Yes Verified Documents: Surgical Consent and History and Physical NPO Status Verified Time NPO: 00:00 Additional verifications Anesthesia Reactions: No Hx Blood Transfusions: No Blood Transfusion Reaction: No Airway Assessment Mallampati Score:: Class II C-Spine Mobility Assessed: Yes TMJ Mobility Assessed: Yes Dentition: Good Dentition Neurological Assessment Level of Consciousness: Awake, Alert and Appropriate Anesthesia Plan Anesthesia Risk discussed: Yes Anesthesia Plan: Verified ASA Class: II Anesthesia Type: General
[2024-09-21] MEDS: CEFAZOLIN SODIUM 2 GM in 0.9 % SODIUM CHLORIDE 100 ML IV (10:35)
[2024-09-21] MEDS: LIDOCAINE 1% 20ML MDV 20 ML (10:50)
[2024-09-21] MEDS: ROPIVACAINE 0.5% 30ML VIAL 150 MG (10:51)
[2024-09-21] MEDS: SODIUM CHLORIDE IRRIG SOLUTION 3,000 ML 200 ML IR (10:52)
--- NOTE | 2024-09-21 11:27 | P.OP_ITS ---
Date of procedure: 09/21/24 Pre-op Diagnosis:: Symptomatic gallstones Post-op Diagnosis:: Symptomatic gallstones Procedure performed:: Laparoscopic cholecystectomy Surgeon:: Paul Danielson MD DEMAND PLANNING MANAGER:: Sreekanth Downs Anesthesia: ACOSTA Estimated blood loss (mL): 15 Clinical Note:: Patient is a 54-year-old male. Primary care provider is Ted Sanchez. He wa referred for gallbladder evaluation. He has had some degree of symptoms for about 3 years. He was seen in his primary care provider's office on 07/01/2024. He described several year history of possible gallbladder issues. He states that whenever he eats anything greasy or fatty type foods he has significant abdominal cramps and pain. On a very strict diet his symptoms are somewhat controlled. After he was seen he had a gallbladder ultrasound done on 08/25/2024 which revealed findings consistent with small stones versus sludge in the gallbladder with incompletely distended gallbladder with normal bile duct. Arrangements were made for outpatient surgical evaluation. He presented to the emergency department on 09/03/2024 with right upper quadrant pain radiating around to mid shoulder area. At that time he refused laboratory assessment. He did undergo a right upper quadrant ultrasound as [id number] ultrasound. He was managed as an outpatient. He returned to the emergency department on 09/06/2024 at this time with epigastric pain radiating to the right upper quadrant and into his shoulder blades. He had pain radiating into his chest which was most concerning. Once again he had [id number] ultrasound which revealed no evidence of acute cholecystitis. There was noted to be gallbladder sludge. He was able be managed as an outpatient with early outpatient surgical follow-up. He was seen as a surgical consultation on 09/08/2024. Options were discussed. Patient strongly desired proceeding with surgery. Of note, patient had a prior abdominal surgery when he was several months old. Exact details are unknown. He had a large right periumbilical transverse scar. Operative findings:: He had a conglomeration of adhesions of small bowel near the umbilicus. There was mild fatty infiltration of the liver. Gallbladder was somewhat distended. Cystic duct was prominent. Operative note:: Consent was obtained patient was taken to the operating room. He was positioned supine position. General anesthesia was induced via endotracheal tube. Abdomen was prepped and draped in the standard surgical fashion. Due to the previous abdominal surgery with unknown intra-abdominal adhesions through a 5 mm incision in the left subcostal region optical trocar was carefully inserted and CO2 pneumoperitoneum was achieved. Laparoscopic surveillance was carried out. Near the umbilicus he had multiple loops of small bowel adherent to the anterior abdominal wall. These were not taken down as this could lead to bowel injury and they have been present for 52 years.. Instead 11 mm trocar was inserted to the left and slightly superior to the umbilical scar under laparoscopic visualization. Patient was then positioned in reverse Trendelenburg with left side down. A couple 5 mm trocars were inserted in the right upper abdomen. 11 mm trocar was inserted in the epigastrium. There was some mild fatty infiltration of the liver. Gallbladder was grasped retracted anteriorly and superiorly over the dome of the liver. There was a large amount of fatty infiltration around the neck of the gallbladder. Blunt dissection was carried out the neck of the gallbladder. Dissection was carried out ultimately identifying the cystic duct and cystic artery and the critical view of safety. Cystic duct was rather prominent and therefore additional dissection was carried out to ensure that this was the cystic duct and it appeared as though this was a cystic duct and the critical view of safety. It was multiply clipped and sharply divided. Cystic artery was prominent and dissected along the edge of the gallbladder and then cauterized with ultrasonic harmonic mandeep and divided. Gallbladder was then dissected free the remainder from the liver in a retrograde fashion using thuy ultrasonic harmonic mandeep. Gallbladder was placed within an Endo Catch retrieval device and removed from the peritoneal cavity via the left periumbilical trocar site which required some minor extension of the fascial incision for delivery. Gallbladder fossa was inspected for hemostasis which was assured. Trocars were then removed as CO2 pneumoperitoneum was evacuated. Fascia at the umbilicus was closed with a couple of interrupted 0 Vicryl sutures. Local anesthetic was infiltrated. Anterior rectus fascia at the epigastric site was closed with 0 Vicryl suture. Skin incisions closed with 4 Monocryl subcuticular fashion. Steri-Strips and dressings were applied. Condition: stable Disposition: PACU Complications:: None immediately apparent
--- NOTE | 2024-09-22 13:35 | P.PNANES_ITS ---
[facility] Anesthesia Record Part II Anesthesia Record Part II Discharge Time: 12:05 Destination: Surgical Day Care (OP Surgery) PACU nurse assessment reviewed?: Yes Patient Condition:: Good Anesthesia Complications:: None Swallowing reflex intact?: Yes Airway Patency: Patent Cyanosis?: No Blood Pressure: 131/62 SaO2: 99 Respiratory Rate: 16 Pulse Rate: 60 Temperature: 97.1 F Mental Status: Alert & Oriented Pain level:: 0 Nausea and/or vomitting:: None Intake, IV Amount: 0 Hydration: Adequate
[2024-09-22 13:37] VITALS: BP 131/62; PULSE 60; RESP 16; TEMP 36.2; O2SAT 99
== END 2024-09-21 12:32 | disposition home or self-care (01) ==
PROVIDERS: PCP Family Medicine; Visit Provider Surgery
PROC: 0FT44ZZ Resection of Gallbladder, Percutaneous Endoscopic Approach (ICD-10-PCS; CPT 47562; principal; 2024-09-21 10:05)
DX: K80.10 Calculus of gallbladder with chronic cholecystitis without obstruction (principal); K76.0 Fatty (change of) liver, not elsewhere classified; F41.9 Anxiety disorder, unspecified; K21.9 Gastro-esophageal reflux disease without esophagitis; Z87.891 Personal history of nicotine dependence; Z79.899 Other long term (current) drug therapy
CPT/HCPCS: 47562; 96374; J0690; J1100; J1596; J1885; J2003; J2250; J2405; J2704; J2710; J2795; J3010; J7120

== ENCOUNTER 2024-10-21 08:36 | Outpatient (CLI) | payer MEDICAID, SELFPAY ==
--- OUTSIDE RECORDS SUMMARY | 2024-10-21 08:39 | XMS_ITS | Clinical Summary ---
Author Organization Healthcare Address [address] [id number] Care Team Providers Care Dinkey Locomotive Engineer Name Role Phone Unavailable Primary Care Provider [...]
--- NOTE | 2024-10-21 09:00 | FL_ITS ---
FINAL REPORT CLINICAL HISTORY: nausea ft 2:11 dap 2964.45 FINDINGS: UPPER GI WITH SBFT UPPER GI EXAM HISTORY: Abdominal pain, nausea. PROCEDURE: The patient ingested barium. Effervescent crystals were also administered. Spot and overhead films were obtained. FINDINGS: The esophagus is normal. There is a small sliding-type hiatal hernia. There is mild gastroesophageal reflux. Peristalsis is normal. The rugal fold pattern of the stomach is thickened which can be seen with gastritis. The duodenal bulb is normal. Fluoroscopy time: 2 minutes 11 seconds Radiation exposure in Reference air Kerma: mGy Fluoro dose: 2964 DAP in uGym2 IMPRESSION: Normal upper GI. SBFT: The curb setter film is normal. There is no evidence of obstruction. The mucosal fold pattern is normal. The terminal ilium is normal. IMPRESSION: 1. Small sliding type hiatal hernia with mild gastroesophageal reflux. 2. Gastric fold thickening which can be seen with gastritis. EGD correlation is recommended. 3. Normal small bowel follow-through. Films reviewed , interpreted and dictated by Dr. Coronado. Transcribed by Sreekanth Lincoln PA-C. Reviewed, Interpreted and Dictated by Kasey Coronado MD Transcribed by MELANI [employer] Authenticated and [facility]
[2024-10-21] MEDS: BARIUM SULFATE (E-Z-HD 340GM);135ML BOTTLE 135 ML PO (09:23)
[2024-10-21] MEDS: BARIUM SULFATE(LIQUID E-Z-PAQUE);355ML BOTTLE 355 ML PO (09:23)
[2024-10-21] MEDS: E-Z-GASII EFFERVESCENT GRANULES;1PK 1 EACH PO (09:24)
== END 2024-10-21 23:59 | disposition home or self-care (01) ==
LOC: RAD 08:36
PROVIDERS: PCP Family Medicine; Visit Provider Surgery
DX: K44.9 Diaphragmatic hernia without obstruction or gangrene (principal); K21.9 Gastro-esophageal reflux disease without esophagitis
CPT/HCPCS: 74246; 74248

== ENCOUNTER 2024-12-31 10:10 | Day surgery (SDC) | payer MEDICAID, SELFPAY ==
[2024-12-29 09:34] VITALS: BMI 26.4
--- NOTE | 2024-12-30 15:51 | EXP.HP ---
History of Present Illness *Admission Date: 12/31/24 *History of present illness: Mr. Lambert is a 54-year-old gentleman who is here for diagnostic EGD. The patient does report right sided abdominal discomfort and pain in the mid back between his shoulder blades. He does have significant postprandial bloating and nausea. He did have cholecystectomy in August 2024 (Paul Danielson MD). This did provide resolution of the right sided discomfort but he continues to have the bloating, nausea and reflux. He has tried Protonix and omeprazole but both made him dizzy. The patient did have an upper GI series which showed hiatal hernia and some reflux. There was some thickening of the gastric rugal folds consistent with gastritis. Lab work including liver chemistries in August 2024 were normal. The ultrasound before gallbladder surgery in July 2024 showed no bile duct dilation. The examination is deemed medically necessary for diagnostic EGD. The patient has been seen, interviewed and examined prior to the procedure by both myself and the anesthesia provider. [facility] Disclaimer: The information contained in this section may have been updated after the patient was seen, as this information can be updated by other users. Medical History Migraine Dizziness Impacted cerumen, left ear Amputation of thumb Anxiety Insect bite Otitis media History of gastroesophageal reflux (GERD) Allergic rhinitis Influenza A Sinusitis URI (upper respiratory infection) Abdominal pain Abdominal cramping Surgical History History of laparoscopic cholecystectomy History of intestinal surgery Hx of thumb surgery History of esophagogastroduodenoscopy (EGD) History of hernia repair Family History Mother Cancer Ovarian Social History Smoking Status: Former smoker alcohol intake: never substance use type: denies use current occupational status: employed and other Travel in the last 8 weeks?: None household members: family housing: house marital status: number of children: 2 Have you lived/traveled outside [place] in past 30 days?: No Contact w/someone who lives/traveled outside US past 30 days?: No Exposure to someone with infectious disease in past 14 days?: No Do you have a fever (greater than 100.4 F or 38 C)?: No Have you tested positive for COVID-19?: No Exposed to someone with COVID-19 in past 14 days?: No Do you have a sore throat?: No Do you have a cough?: No Do you have any weakness?: No Are you experiencing any nausea/vomitting?: No Do you have any diarrhea?: No Are you experiencing any unusual bleeding?: No Do you have any muscle aches/pain?: No Do you have any abdominal pain?: No Are you experiencing loss of taste or smell?: No Other Medical History Have you received the Flu Vaccine for this season: No Have you received the Pneumonia Vaccine: No Review of Systems Review of Systems Review of systems (narrative): Negative *Cardiovascular Comments: Negative *Gastrointestinal Comments: Negative *Genitourinary Comments: Negative *Musculoskeletal Comments: Negative *Neurologic Comments: Negative Meds Home Medications and Allergies Home Medications ?Medication ?Instructions ?Recorded ?Confirmed ?Type pantoprazole 40 mg tablet,delayed 40 mg PO DAILY #30 tabs 10/19/24 12/31/24 Rx release (Protonix) famotidine 20 mg tablet (Acid 20 mg PO DAILY #30 tabs 10/29/24 12/31/24 Rx Sm[employer] 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 (famotidine)) alprazolam 0.25 mg tablet 0.25 mg PO HSP PRN Anxiety #30 tabs 11/17/24 12/31/24 Rx valsartan 40 mg tablet 40 mg PO DAILY 12/31/24 12/31/24 History New Prescriptions to Start Prescriptions: Allergies Allergy/AdvReac Type Severity Reaction Status Date / Time No Known Allergies Allergy Verified 12/29/24 09:30 Exam Data for Last 24 hours I & O for Last 24 hours: Intake & Output 12/27/24 12/28/24 12/29/24 12/30/24 23:59 23:59 23:59 23:59 Weight 195 lb *Routine HEENT Exam Head: Present normocephalic Eye: Present EOMI and PERRL ENT: Present mucous membranes moist *Routine Neck Exam Neck: Present supple *Routine Respiratory Exam Respiratory: Present CTA bilaterally *Routine Cardiovascular Exam Cardiovascular: Present RRR *Routine Abdominal Exam Abdominal: Present soft and normoactive bowel sounds; Absent tenderness *Routine Rectal Exam Rectal:: deferred *Routine Genitalia Exam Genitalia:: deferred *Routine Extremities Exam Extremities: Absent cyanosis, clubbing or edema *Routine Skin Exam Skin: Present warm; Absent rash *Routine Neurological Exam Neurological: Present alert and oriented X3 Assessment and Plan *Assessment and plan (1) Heartburn: Status: Acute Category: Medical Code(s): R12 - Heartburn (2) Dyspepsia: Status: Acute Category: Medical Code(s): R10.13 - Epigastric pain (3) Nausea: Status: Acute Category: Medical Code(s): R11.0 - Nausea (4) Bloating: Status: Acute Category: Medical Code(s): R14.0 - Abdominal distension (gaseous) (5) Gastritis: Status: Acute Category: Medical Code(s): K29.70 - Gastritis, unspecified, without bleeding Plan A/P: 1. Nausea, bloating, dyspepsia and heartburn is the preprocedural diagnosis. His upper GI series showed evidence of moderate gastritis. The patient will be anesthetized/sedated using MAC sedation. The patient has been seen and examined. Cardiac and lung assessment prior to the examination is stable. Proceed with planned diagnostic EGD.
--- NOTE | 2024-12-31 06:39 | P.PCN_ITS ---
[facility] Procedure Note Date: 12/31/24 Time: 12:37 Procedure Note:: Upper Endoscopy Procedure Report: Esophagogastroduodenoscopy with cold biopsies Endoscopost: Ghulam Moffett II, MD Referring Physician: Hector Romero M.D. Date of Procedure: December 31, 2024 Equipment: Olympus GIF-1100 standard upper endoscope Sedation: MAC sedation Indications: Mr. Lambert is a 54-year-old gentleman who is here for diagnostic EGD. Most of his symptoms have resolved since cholecystectomy but the patient was having right sided abdominal discomfort and pain in the mid back between his shoulder blades. He was having significant postprandial bloating and nausea. He has markedly improved since stopping carbonated beverages. The patient still has some postprandial belching and occasional nausea. He reports no early satiety and has some occasional reflux. He reports no dysphagia. He did have c holecystectomy in August 2024 (Paul Danielson MD). This did provide resolution of the right sided discomfort. He had tried Protonix previously which caused dizziness and now is on omeprazole. He states that he has been on this for about 10 years. The patient did formerly have an upper GI series which showed hiatal hernia and some reflux. There was some thickening of the gastric rugal folds consistent with gastritis. The patient does state that he had an EGD with Dr. Paul Danielson 10 to 12 years ago. Lab work including liver chemistries in August 2024 were normal. The ultrasound before gallbladder surgery in July 2024 showed no bile duct dilation. The examination is deemed medically necessary for diagnostic EGD. Procedure: Prior to the procedure, a history and physical exam was performed, and patient's medications and allergies were reviewed. The risks, benefits and alternatives of the sedation and procedure were discussed with the patient. All questions were answered and informed consent was obtained. The patient was brought to the procedure room. Patient identification and proposed procedure were verified by the physician and the nurse. The patient was placed in a left lateral decubitus position and the scope was passed under direct vision. Throughout the procedure, the patient's blood pressure, pulse, and oxygen saturations were monitored continuously. The upper GI endoscopy was accomplished without difficulty. The patient tolerated the procedure well. Findings: The scope was passed directly into the upper esophagus and advanced to the third portion of the duodenum. The post bulbar duodenum, ampulla and duodenal bulb were normal with normal mucosa and conniventes. A cold biopsy was taken from the second portion of the duodenum for the disaccharidase assay. The scope was withdrawn through a normal duodenal bulb and pylorus into the stomach. There was some mild linear reactive gastropathy of the antrum and very mild chronic gastritis. Cold biopsies were taken along the lesser curvature. Upon retroflexion there was a 3 cm medium sized hiatal hernia. The scope was then withdrawn into the esophagus. There was no evidence of reflux esophagitis or Sherman's. The remainder of the esophageal mucosa was normal. Impression: 1. Nonerosive GERD with medium sized (3 cm) hiatal hernia 2. Mild antral gastropathy and mild proximal gastritis Plan: I will follow-up the biopsies and disaccharidase assay. I will discuss the findings with the patient and family.
[2024-12-31] MEDS: LACTATED RINGERS 1000ML 1,000 ML 50 ML IV (11:02)
[2024-12-31 11:05] VITALS: BP 131/75; PULSE 59; RESP 18; TEMP 36.3; O2SAT 98
--- NOTE | 2024-12-31 11:50 | EXP.ANES.CKL ---
[facility] Disclaimer: The information contained in this section may have been updated after the patient was seen, as this information can be updated by other users. Medical History Migraine Dizziness Impacted cerumen, left ear Amputation of thumb Anxiety Insect bite Otitis media History of gastroesophageal reflux (GERD) Allergic rhinitis Influenza A Sinusitis URI (upper respiratory infection) Abdominal pain Abdominal cramping Surgical History History of laparoscopic cholecystectomy History of intestinal surgery Hx of thumb surgery History of esophagogastroduodenoscopy (EGD) History of hernia repair Family History Mother Cancer Ovarian Social History Smoking Status: Former smoker alcohol intake: never substance use type: denies use current occupational status: employed and other Travel in the last 8 weeks?: None household members: family housing: house marital status: number of children: 2 Have you lived/traveled outside [place] in past 30 days?: No Contact w/someone who lives/traveled outside US past 30 days?: No Exposure to someone with infectious disease in past 14 days?: No Do you have a fever (greater than 100.4 F or 38 C)?: No Have you tested positive for COVID-19?: No Exposed to someone with COVID-19 in past 14 days?: No Do you have a sore throat?: No Do you have a cough?: No Do you have any weakness?: No Are you experiencing any nausea/vomitting?: No Do you have any diarrhea?: No Are you experiencing any unusual bleeding?: No Do you have any muscle aches/pain?: No Do you have any abdominal pain?: No Are you experiencing loss of taste or smell?: No [facility] Anesthesia Checklist Patient Identification Patient Identification: Arm Band Structural Data Admitted From: Home Planned Operative Procedure/s: EGD Consent for Planned Operative Procedure(s) Verified: Yes Verified Documents: Surgical Consent and History and Physical NPO Status Verified Time NPO: 00:00 Additional verifications Anesthesia Reactions: No Hx Blood Transfusions: No Blood Transfusion Reaction: No Airway Assessment Mallampati Score:: Class II C-Spine Mobility Assessed: Yes TMJ Mobility Assessed: Yes Dentition: Good Dentition Neurological Assessment Level of Consciousness: Awake, Alert and Appropriate Anesthesia Plan Anesthesia Risk discussed: Yes Anesthesia Plan: Verified ASA Class: II Anesthesia Type: MAC
[2024-12-31 12:41] VITALS: BP 122/89; PULSE 63; RESP 16; TEMP 36.3; O2SAT 100
[2024-12-31 12:51] VITALS: BP 141/71; PULSE 67; RESP 16; O2SAT 97
[2024-12-31 13:01] VITALS: BP 121/78; PULSE 72; RESP 18; O2SAT 100
[2024-12-31 13:11] VITALS: BP 107/61; PULSE 59; RESP 18; O2SAT 100
[2024-12-31 13:37] VITALS: BP 122/65; PULSE 62; RESP 18; TEMP 36.3; O2SAT 100
[2025-01-05 13:26] LABS: Interpretation Notes (.); Lactase 20.46 (>/= 14.0); Maltase 163.69 (>/= 110.0); Palatinase 9.53 (>/= 8.5); Reference Notes (.); Sucrase 39.24 (>/= 25.0)
== END 2024-12-31 13:37 | disposition home or self-care (01) ==
LOC: OUTP 10:10
PROVIDERS: PCP Internal Medicine Adolescent Medicine; Visit Provider Internal Medicine Gastroenterology
PROC: 0DJ08ZZ Inspection of Upper Intestinal Tract, Via Natural or Artificial Opening Endoscopic (ICD-10-PCS; CPT 43239; principal; 2024-12-31 12:00)
DX: K21.9 Gastro-esophageal reflux disease without esophagitis (principal); K44.9 Diaphragmatic hernia without obstruction or gangrene; K29.70 Gastritis, unspecified, without bleeding; K31.9 Disease of stomach and duodenum, unspecified; Z90.49 Acquired absence of other specified parts of digestive tract; F41.9 Anxiety disorder, unspecified; Z87.891 Personal history of nicotine dependence; Z79.899 Other long term (current) drug therapy
CPT/HCPCS: 43239; 82657; J2003; J2704; J7120

== ENCOUNTER 2025-02-08 12:40 | Outpatient (CLI) | payer MEDICAID, SELFPAY ==
--- OUTSIDE RECORDS SUMMARY | 2025-02-08 12:42 | XMS_ITS | Clinical Summary ---
Author Organization Healthcare Address [address] [id number] Care Team Providers Care Prescription Benefit Specialist Name Role Phone Unavailable Primary Care Provider [...]
--- NOTE | 2025-02-08 12:46 | XR_ITS ---
FINAL REPORT CLINICAL HISTORY: chronic neck pain COMPARISON: None FINDINGS: Five views of the cervical spine were obtained with additional flexion and extension views. No fracture is present. Alignment is normal. No prevertebral soft tissue swelling is seen. Disc heights are well maintained. There is left-sided bony neural foraminal narrowing at C3-4 and C4-5. Remaining neural foramen are widely patent. No evidence of instability on flexion or extension views. IMPRESSION: No acute bony abnormality. Neural foraminal narrowing as above. No instability on flexion or extension. Reviewed, Interpreted and Dictated by Kasey Coronado MD Transcribed by Viviana Orozco Authenticated and [facility]
== END 2025-02-08 23:59 | disposition home or self-care (01) ==
LOC: RAD 12:41
PROVIDERS: PCP Internal Medicine Adolescent Medicine; Visit Provider Specialist
DX: M99.71 Connective tissue and disc stenosis of intervertebral foramina of cervical region (principal); R42 Dizziness and giddiness; R51.9 Headache, unspecified
CPT/HCPCS: 72052

== ENCOUNTER 2025-03-18 08:36 | Outpatient (CLI) | payer MEDICAID, SELFPAY ==
--- OUTSIDE RECORDS SUMMARY | 2025-03-18 08:40 | XMS_ITS | Clinical Summary ---
Author Organization Healthcare Address [address] [id number] Care Team Providers Care Rag Baler Name Role Phone Unavailable Primary Care Provider [...]
--- NOTE | 2025-03-18 09:00 | MR_ITS ---
FINAL REPORT TECHNIQUE: Multiplanar and multisequence imaging of the brain was obtained without contrast. CLINICAL HISTORY: Headache pressure on anterior tingling on posterior unable to sleep 3-4 years COMPARISON: None FINDINGS: Brain parenchymal: There is no mass effect or midline shift. There are no areas of abnormal signal intensity.The cerebellum and brainstem are without acute abnormality. Ventricles: The ventricles are symmetric in size and configuration without hydrocephalus. Extra-axial spaces: No extra-axial fluid collections. Diffusion imaging: No areas of restricted diffusion to suggest acute infarct. Flow voids: Flow voids within the major intracranial vessels are preserved. Soft tissues: There is fluid present in the bilateral mastoid air cells. There are small retention cysts or polyps present in the bilateral maxillary sinuses. IMPRESSION: No acute intracranial abnormality. Bilateral acute mastoiditis, with chronic changes in the bilateral maxillary sinuses. Reviewed, Interpreted and Dictated by Tootie Sotelo MD Transcribed by Prerna Funez Authenticated and . [facility]
== END 2025-03-18 23:59 | disposition home or self-care (01) ==
LOC: RAD 08:36
PROVIDERS: PCP Internal Medicine Adolescent Medicine; Visit Provider Specialist
DX: H70.003 Acute mastoiditis without complications, bilateral (principal); J34.1 Cyst and mucocele of nose and nasal sinus
CPT/HCPCS: 70551